=== PATIENT | male | born 1945 | race Caucasian/White ===

== ENCOUNTER 2017-07-21 17:39 | Inpatient (IN) ==
[2017-07-21] MEDS ORDERED: ALUM/MAG/SIMETH/LIDO VISC 1:1 30 ML BOTTLE PO STA (19:34)
[2017-07-21] MEDS ORDERED: PANTOPRAZOLE 40 MG VIAL IV STA (19:34)
[2017-07-21] MEDS ORDERED: ONDANSETRON 4 MG/2 ML VIAL IV STA (19:34)
[2017-07-21] MEDS ORDERED: SODIUM CHLORIDE 0.9% 1,000 ML IV STA (19:34)
[2017-07-21 19:49] LABS: Basophils # 0.1 10*3/uL (0.0-0.2); Basophils % 0.5 % (0.0-0.8); Eosinophils # 0.1 10*3/uL (0.0-0.87); Eosinophils % 0.7 % (0.00-10.9); Hematocrit 36.1 VOL% (42.0-52.0); Hemoglobin 12.5 GM/DL (14.0-18.0); Immature Granulocytes % 0.5 %; Immature Granulocytes Absolute 0.05 #; Lymphocytes # 2.4 10*3/uL (1.4-4.0); Lymphocytes % 22.8 % (21.2-54.2); Mean Corpuscular HGB Conc 34.6 GM/DL (32-36); Mean Corpuscular Hemoglobin 33 PG (27-34); Mean Corpuscular Volume 94.3 FL (87-102); Mean Platelet Volume 9.2 FL (9.6-12.0); Monocytes # 0.8 10*3/uL (0.11-0.8); Monocytes % 7.7 % (1.7-12.7); Neutrophils # 7.3 10*3/uL (1.4-7.4); Neutrophils % 67.8 % (38.7-73.9); Platelet Count 386 T/CUMM (130-400); Red Blood Count 3.83 MC/CUMM (3.8-5.5); Red Cell Distribution Width 13.5 % (9.3-17.3); White Blood Count 10.7 T/CUMM (4-12)
[2017-07-21] MEDS ORDERED: ONDANSETRON 4 MG/2 ML VIAL ONE (20:00)
[2017-07-21] MEDS ORDERED: PANTOPRAZOLE 40 MG VIAL IV ONE (20:00)
[2017-07-21] MEDS ORDERED: ALUM/MAG/SIMETH/LIDO VISC 1:1 30 ML BOTTLE PO ONE (20:01)
[2017-07-21 20:13] LABS: Lactic Acid 1.2 MMOL/L (0.4-2.0)
[2017-07-21 20:15] LABS: Alanine Aminotransferase 13 U/L (16-61); Albumin 2.2 G/DL (3.4-5.0); Alkaline Phosphatase 90 U/L (45-117); Amylase 52 U/L (25-115); Aspartate Amino Transferase 13 U/L (0-37); Blood Urea Nitrogen 17 MG/DL (7-18); Calcium 7.9 MG/DL (8.5-10.1); Glucose 90 MG/DL (74-106); Osmolality,Calculated 267.4 MOS/KG (273-304); Potassium 2.9 MMOL/L (3.5-5.1); Sodium 133 MMOL/L (136-145); Total Protein 5.8 G/DL (6.4-8.3); Troponin I Only < 0.015 NG/ML (0.00-0.045)
--- NOTE | 2017-07-21 20:21 | XRay Report ---
XR abdomen 2V Indication: Abdominal pain. Comparison: Abdominal series 07/15/2017. Technique: Flat and erect images of the abdomen were performed. Findings: The lung bases are clear. No organomegaly is present. Imaged bowel gas pattern is unremarkable. Bones and soft tissues unremarkable. Impression: 1. No active process is suggested within the abdomen or pelvis. 07/21/2017 8:19 PM PROCEDURE INTERPRETED AT [facility] DEPARTMENT OF RADIOLOGY Final Report Signed by: Dr. Cristi Lazo
--- NOTE | 2017-07-21 20:21 | XRay Report ---
XR chest 1V portable Indication: Abdominal pain. Comparison: Chest x-ray 07/15/2017. Technique: Portable AP chest was performed. Findings: Pulmonary nodule/mass right mid lung has probably changed little in size since comparison study. Emphysematous changes are suggested. Hilar structures are stable. Heart size is normal. Bones and soft tissues appear stable. Impression: 1. Little interval change in the chest since comparison. Right upper lobe pulmonary nodule/mass is again demonstrated. 2. Moderate to severe emphysematous changes are present. 07/21/2017 8:17 PM PROCEDURE INTERPRETED AT [facility] DEPARTMENT OF RADIOLOGY Final Report Signed by: Dr. Cristi Lazo
[2017-07-21] MEDS ORDERED: POTASSIUM CHLORIDE 20 MEQ TABLET PO STA (20:36)
--- NOTE | 2017-07-21 20:38 | Emergency Department Note ---
Mariaa Batista Rolonda, am scribing for, and in the presence of, Uri Lira MD 19:21. Pankaj Batista Charles R, MD, personally performed the services described in this documentation, ascribed by Adelfo Leroy in my presence, and it is both accurate and complete . Arrival - Arrival Chief Complaint: Nausea/Vomiting/Diarrhea Stated Complaint: can't eat...diarrhea ED Nursing Triage Note: c/o weakness. pt has diarrhea for 4 weeks. pt was told by gi md to come to er. pt got up this am ans was unable to void until about 1700 this afternoon Mode of Arrival: Ambulatory Limitations: No Limitations Source: Patient, Old Records Reviewed, RN Notes Reviewed Time Seen by Provider: 07/21/17 19:07 - History of Present Illness HPI Narrative: Pt is a 71 y/o male who presents to the ED with c/o N/V/D with an onset of weeks. Pt has a PMHx of colon and lung CA. He states that the sxs started off as stomach cramps when he developed loss of appetite. Pt states that he has not urinated since 1200 last night. He states that he had constipation first and then developed watery, "bright red blood" diarrhea. He confirms associated sxs of weakness but denies CP and SOB. No other complaint/pain in ED. Onset (ago): week(s) Consistency: constant Severity: moderate, severe Severity scale (1-10): 6 Allergies/Adverse Reactions: Allergies Allergy/AdvReac Type Severity Reaction Status Date / Time hydrocodone [From Lortab] AdvReac Intermediate Hallucinati Verified 07/15/17 12: 30 ng Home Medications: Home Medications Medication Instructions Recorded Confirmed Type Aspirin [Ecotrin] 81 mg PO QAM 06/18/16 07/21/17 History Fluticasone/Salmeterol 500-50 1 puff INH BID 06/18/16 07/21/17 History [Advair 500-50] Ipratropium/Albuterol Inhaler 1 puff INH QID 06/18/16 07/21/17 History [Combivent Respimat Inhaler] Multivitamin [Multivitamins] 1 each PO DAILY 06/18/16 07/21/17 History Theophylline ER Tab 200 mg PO BID W/MEALS 06/18/16 07/21/17 History Albuterol Inhaler [Proventil 2 puff INH Q4H PRN 07/15/17 07/21/17 History Inhaler] Cyanocobalamin (Vitamin B-12) 5,000 mcg SL DAILY 07/15/17 07/21/17 History [Vitamin B-12] Omeprazole [Prilosec] 20 mg PO DAILY 07/15/17 07/21/17 History Potassium Chloride Cap/Tab [K Dur] 20 meq PO BID #14 tablet 07/15/17 07/21/17 Rx Review of System - Review of System Constitutional: Present: weakness, other (appepitite loss) Eyes: Absent: discharge Head/Ears/Nose/Throat: Absent: earache Respiratory: Absent: cough Cardiovascular: Absent: chest pain Gastrointestinal: Present: nausea, vomiting, diarrhea (watery; "bright red blood "), constipation. Absent: abdominal pain (stomach cramps) Genitourinary male: Absent: dysuria Musculoskeletal: Absent: arm pain, back pain Skin: Absent: rash Neurological: Absent: headache Psychiatric: Absent: anxiety Endocrine: Absent: cold intolerance Hematological/Lymphatic: Absent: easy bleeding Allergic/Immunologic: Absent: facial swelling Medical,Surgical,& Family Hx - Medical History Neurology: History of: Migraine No history of: Seizures Respiratory: History of: Asthma, COPD, Respiratory Problems (SHORTNESS OF BREATH , 08/2016 DR GARCIA, SPOT ON LUNG) Gastrointestinal: History of: GERD, Gastrointestinal Cancer (11/2006) Musculoskeletal: History of: Back/Neck Problems (FX BACK 2007), Musculoskeletal Problems (BILATERAL OA KNEES) Other: History of: Cancer (COLON CA/LUNG CA) - Surgical History Abdominal Surgeries: Surgical HX of: Abdominal Surgery (COLON RESECTION 11/2006) , Colonoscopy Orthopedic Surgeries: Surgical HX of;: Implanted Devices (SCREWS IN RIGHT THUMB) - Family History Family History: Reports;: Family Cancer (5 UNCLES), Family Stroke (MOTHER) - Social History Smoking Status: Never smoker Frequency of Alcohol Use: None Type of Drug Use: None Exam Vital Signs: Vital Signs Temperature 98.7 F 07/21/17 17:51 Pulse Rate 74 07/21/17 21:49 Respiratory Rate 18 07/21/17 21:49 Blood Pressure 104/59 07/21/17 21:49 O2 Sat by Pulse Oximetry 100 07/21/17 21:49 - General General appearance: alert, in no apparent distress, other (global atrophy in all muscles) - Head Head exam: Present: atraumatic, normocephalic - Eye Eye exam: Present: PERRL, EOMI. Absent: normal appearance (sunken orbits) - ENT ENT exam: Present: mucous membranes dry. Absent: mucous membranes moist - Neck Neck exam: Present: full ROM. Absent: tenderness - Chest Chest inspection: Present: symmetric chest wall rise. Absent: tenderness - Respiratory Respiratory exam: Present: rhonchi (bilateral), wheezes (expiratory) - Cardiovascular Cardiovascular exam: Present: regular rate, normal rhythm, normal heart sounds. Absent: bradycardia - Abdominal Exam Abdominal exam: Present: soft, normal bowel sounds, other (scaphoid abdomen; sunken) - Rectal Exam Rectal exam: Present: heme (+) stool - Extremities Exam Extremities exam: Present: full ROM. Absent: normal inspection (clubbing in hands), tenderness - Back Exam Back exam: Present: full ROM. Absent: tenderness - Neurological Exam Neurological exam: Present: alert, oriented X3, CN II-XII intact - Psychiatric Psychiatric exam: Present: normal affect, normal mood - Skin Skin exam: Present: warm, dry, intact, normal color. Absent: rash Course - Consultations Consultation #1: Dr. Rich will admit for Dr. Joyner Time: 23:10 Results - Labs CBC & BMP: 07/21/17 19:12 07/21/17 19:12 Lab Results: I have reviewed the patients labs Labs: Laboratory Tests 07/21/17 19:12 WBC 10.7 RBC 3.83 Hgb 12.5 L Hct 36.1 L Plt Count 386 MPV 9.2 L Laboratory Tests 07/21/17 19:12 Sodium 133 L Potassium 2.9 L Chloride 93 L Carbon Dioxide 33 H BUN 17 GFR Calculation 82 Glucose 90 Calculated Osmolality 267.4 L Calcium 7.9 L AST 13 ALT 13 L Total Creatine Kinase 32 L Total Protein 5.8 L Albumin 2.2 L Globulin 3.6 H Albumin/Globulin Ratio 0.6 L Laboratory Tests 07/21/17 19:12 Blood Type O POSITIVE Antibody Screen Negative Laboratory Tests 07/21/17 21:48 Urine pH 6.0 Ur Specific [place] 1.020 Urine Protein 30 Urine Glucose (UA) Negative Urine Ketones Negative Urine Blood Negative Urine Nitrate Negative Urine Bilirubin Large H Urine Urobilinogen < 2.0 H Urine Leukocytes Negative Urine RBC 1 Urine WBC 2 Urine Mucus Occasional Ur Culture Indicated? Not indicated - Diagnostic Findings Procedure: Abdominal x-ray: report reviewed by me (1. No active process is suggested within the abdomen or pelvis.), Chest x-ray: report reviewed by me ( 1. Little interval change in the chest since comparison. Right upper lobe pulmonary nodule/mass is again demonstrated. 2. Moderate to severe emphysematous changes are present.) Disposition Clinical Impression: Lung cancer, History of colon cancer, Obstipation, Lower GI bleed Case discussed with: patient Disposition: Still a Patient Condition: Stable Time of Disposition: 23:25
[2017-07-21] MEDS ORDERED: POTASSIUM CHLORIDE 20 MEQ TABLET PO ONE (20:45)
[2017-07-21 22:07] LABS: Apearance,Urine Clear (Clear); Blood, Urine NEGATIVE (Negative); Glucose,Urine (UA) Negative (Negative); Ketones,Urine Negative (Negative); Mucus,Urine Occasional /LPF (Occasional); Nitrite,Urine Negative (Negative); Protein,Urine 30 MG/DL; RBC,Urine 1 /HPF (0-4); Urine Color Yellow (Yellow); WBC,Urine 2 /HPF (0-6)
[2017-07-21 22:12] LABS: Bilirubin,Urine Large mg/dL (Negative); Urine Urobilinogen < 2.0 EU/DL (0.2-1.0)
[2017-07-22] MEDS ORDERED: LACTULOSE 20 GM/30 ML UDCUP PO PRN (00:04)
[2017-07-22] MEDS ORDERED: BENZTROPINE 2 MG/2 ML AMP IV PRN (00:04)
[2017-07-22] MEDS ORDERED: diphenhydrAMINE CAP 25 MG CAPSULE PO PRN (00:04)
[2017-07-22] MEDS ORDERED: chlorproMAZINE INJ 25 MG in SODIUM CHLORIDE 0.9% 100 ML IV PRN (00:04)
[2017-07-22] MEDS ORDERED: MYLANTA/LIDO VISC 2:1 300 ML BOTTLE SWISH/SPIT PRN (00:04)
[2017-07-22] MEDS ORDERED: guaiFENesin 200 MG/10 ML UDCUP PO PRN (00:04)
[2017-07-22] MEDS ORDERED: LOPERAMIDE 2 MG CAPSULE PO PRN ×2 (00:04)
[2017-07-22] MEDS ORDERED: MYLANTA/LIDO VISC 2:1 300 ML BOTTLE SWISH/SWAL PRN (00:04)
[2017-07-22] MEDS ORDERED: chlorproMAZINE INJ 50 MG in SODIUM CHLORIDE 0.9% 100 ML IV PRN (00:04)
[2017-07-22] MEDS ORDERED: ONDANSETRON 4 MG/2 ML VIAL IV PRN (00:04)
[2017-07-22] MEDS ORDERED: ACETAMINOPHEN 325 MG TABLET PO PRN (00:04)
[2017-07-22] MEDS ORDERED: PROMETHAZINE INJ 25 MG in SODIUM CHLORIDE 0.9% 50 ML IV PRN (00:04)
[2017-07-22] MEDS ORDERED: TEMAZEPAM 7.5 MG CAPSULE PO PRN (00:04)
[2017-07-22] MEDS ORDERED: ALUMINUM/MAGNES/SIMETH MAX STR 30 ML UDCUP PO PRN (00:04)
[2017-07-22] MEDS ORDERED: SODIUM CHLORIDE 0.9% 1,000 ML IV SCH (00:04)
[2017-07-22] MEDS ORDERED: ALPRAZolam 0.25 MG TABLET PO PRN (00:04)
[2017-07-22] MEDS ORDERED: MAGNESIUM HYDROXIDE SUSP 30 ML UDCUP PO PRN (00:04)
[2017-07-22] MEDS ORDERED: chlorproMAZINE 25 MG TABLET PO PRN (00:04)
[2017-07-22] MEDS ORDERED: ALBUTEROL 2.5 MG/3 ML NEB RESP TX PRN (01:00)
[2017-07-22 01:45] LABS: Basophils % 0.4 % (0.0-0.8); Eosinophils # 0.1 10*3/uL (0.0-0.87); Eosinophils % 0.6 % (0.00-10.9); Hemoglobin 11.2 GM/DL (14.0-18.0); Immature Granulocytes % 0.8 %; Immature Granulocytes Absolute 0.08 #; Lymphocytes # 2.4 10*3/uL (1.4-4.0); Lymphocytes % 24.4 % (21.2-54.2); Mean Corpuscular HGB Conc 33.9 GM/DL (32-36); Mean Corpuscular Hemoglobin 32 PG (27-34); Mean Corpuscular Volume 95.4 FL (87-102); Monocytes # 0.8 10*3/uL (0.11-0.8); Monocytes % 8.4 % (1.7-12.7); Neutrophils # 6.3 10*3/uL (1.4-7.4); Neutrophils % 65.4 % (38.7-73.9); Platelet Count 440 T/CUMM (130-400); Red Blood Count 3.46 MC/CUMM (3.8-5.5); Red Cell Distribution Width 13.5 % (9.3-17.3); White Blood Count 9.6 T/CUMM (4-12)
[2017-07-22 02:02] LABS: Albumin 1.9 G/DL (3.4-5.0); Bilirubin,Total 0.6 MG/DL (0.2-1.0); Calcium 7.4 MG/DL (8.5-10.1); Magnesium 1.9 MG/DL (1.8-2.4); Osmolality,Calculated 270.1 MOS/KG (273-304); Potassium 3.3 MMOL/L (3.5-5.1); Uric Acid 6.5 MG/DL (3.5-7.2)
[2017-07-22] MEDS: ALBUTEROL/IPRATROPIUM 3 ML NEB RESP TX SCH ×4 (07:18→18:52)
--- NOTE | 2017-07-22 07:41 | Oncology History&Physical ---
History of Present Illness Chief complaint: Intractable nausea and vomiting and diarrhea History of present illness: Mr. Lopez is a 71 year old male who is currently off chemotherapy. 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 He has been on active chemotherapy in the past using Abraxane, carboplatin and Avastin but his last course was given April 02, 2017 and at that point we stopped chemotherapy at his request. His lung cancer is PDL1 negative. He has had five courses of Abraxane, carboplatin and Avastin with the last one being given April 02, 2017 as stated above. He was responding to chemotherapy but his insurance changed and part of the problem is that he did not want to get and it and he therefore requested that we stop treatment of his lung cancer. He was being treated with Avastin as a single agent when she got on April 09 but he wanted that stopped as well. I had considered trying Alimta, carboplatin and Keytruda but this is approved only for stage IV disease. If he has proven stage IV disease, we can use the above combination we can also consider him for Tecentric or possibly Tagrisso third line. He underwent PET scanning earlier this year but has not had one recently. He has had a CT of the chest earlier this month that was interpreted as follows: History: COPD. Pneumonia. Acute on chronic bronchitis. History of colon cancer Date: 06/24/2016 Study: CT chest with IV contrast Comparison exam: Most recent available comparison chest CT is from August 29, [address] sections were obtained through the lungs following the IV administration of 80 mL of Omnipaque 350 without immediate complication. Total DLP measures 140.7 mGy*cm. There is no thoracic aortic aneurysm or dissection. There is no mediastinal lymphadenopathy by short axis diameter criteria. There is no pleural or pericardial effusion. There is mild coronary artery calcification present. There are moderate emphysematous changes in the lungs bilaterally, more so in the upper lung zones. Centrilobular emphysema is favored. There is some parenchymal consolidation in the right upper lobe compatible with pneumonia. This involves the posterior and anterior segments inferiorly. There is also a small amount of hazy infiltrate in the right middle lobe near the perihilar area. There is no well-circumscribed soft tissue mass. There is mild diffuse fatty infiltration of the largely visualized liver. Impression: Right lung pneumonia. Moderate emphysematous changes PROCEDURE INTERPRETED AT [facility] DEPARTMENT OF RADIOLOGY Final Report Signed by: Dr. Barbie Frey In addition, the patient has a remote history of adenocarcinoma of the right colon that was diagnosed November 27, 2006. It was stage IIIb with a T3, N1, M0 tumor. He was treated with adjuvant chemotherapy using leucovorin and 5-FU weekly for 4 courses. He completed this treatment in June 2007. Past medical history: Allergies: Hydrocodone including Lorcet, Lortab's. Past medical history is positive for emphysema, asthma and colon polyps. Family history is positive for an abdominal aortic aneurysm in his brother, diabetes in his daughter, lung cancer in his father and coronary artery disease and stroke in his mother Social history: He was a heavy smoker for years. He does not use alcohol. ROS Gen.: Positive for increased appetite until very recently. He had gained weight at one point but his appetite has dropped off now. He also has generalized weakness and lack of energy. Eyes: No history of chronic disease, infections or visual loss. ENT: No history of chronic infections, epistaxis, chronic sore throat Lungs: History of asthma and emphysema with dyspnea with mild exertion. No history of hemoptysis, chronic pleurisy or long-term or chronic infections Cardiovascular: No history of angina, coronary artery disease, congestive heart failure, cardiovascular surgery or DVT/VTE GI: He has developed both nausea and vomiting and diarrhea that began about a month ago but prior to that time there was no history of upper or lower GI bleeding, melena, dysphagia, odynophagia, liver disease, gallbladder disease or pancreatic disease. : No history of kidney stones, chronic kidney infections or hematuria. Musculoskeletal: No history of chronic bone or joint pain or focal muscle atrophy or bone or joint deformity. Neurologic: No history of seizures, convulsions or paralysis. Psychiatric: No history of chronic psychiatric illness or psychiatric medications. Lymphatic: No history of significant or long-term lymphadenopathy Hematologic: Positive for easy bruising but otherwise no history of anemia, bleeding disorders or blood dyscrasias or long-term elevation or depression white cell count or petechiae. Skin: No history of chronic skin infections or rashes or significant skin lesions. Physical examination: General: The patient is chronically ill-appearing. He also appears acutely ill. Eyes: Normal lids and conjunctivae. ENT: His oral mucosa and pharynx are normal. His hearing is normal. His trachea is midline and he has no neck masses. Lungs: Breath sounds are coarse throughout with decreased breath sounds throughout and with prolonged expiratory phase of respiration. I see no chest wall masses and there is no tenderness. Cardiovascular: His heart rhythm is regular without murmur, gallop or rub. There is no jugular venous distention, clubbing, cyanosis or edema. Abdomen: Presently bowel sounds are normal. In addition, there is no tenderness and there are no abdominal masses, organomegaly or ascites and no splenomegaly. Musculoskeletal: The patient is thin to the point of being cachectic. There is no focal muscle atrophy or bone or joint deformity. Neurologic: Cranial nerves II through XII are intact. The no focal neurologic deficits. Nodes: I palpate no submandibular, cervical, supraclavicular or axillary adenopathy. Skin: I see no significant rashes or lesions. Impression: Intractable nausea and vomiting and diarrhea of indefinite etiology: Stage IIIB adenocarcinoma of the lung responding to chemotherapy but currently off chemotherapy: Moderately severe COPD: History of adenocarcinoma of the colon: Emaciation, cachexia and malnutrition: Consulting Dr. Kruse to evaluate the patient with me for this intractable nausea and vomiting. I do not think this is recurrence of the patient's colon cancer. Once we get his nausea and vomiting under control, I would like to obtain a CT of the abdomen and pelvis and possibly a repeat CT of the patient's chest to re-assess his lung cancer and his colon cancer and his overall condition. This is a somewhat unfortunate situation that this patient feels ethically found to not take further chemotherapy if he cannot afford it. However, he has also done surprisingly well with advanced lung cancer that so far has been proven to be stage IIIb and also he has had no prior evidence of recurrence of his colon cancer. He has significant COPD as well. Home Medications Medication Instructions Recorded Confirmed Type Aspirin [Ecotrin] 81 mg PO QAM 06/18/16 07/21/17 History Fluticasone/Salmeterol 500-50 1 puff INH BID 06/18/16 07/21/17 History [Advair 500-50] Ipratropium/Albuterol Inhaler 1 puff INH QID 06/18/16 07/21/17 History [Combivent Respimat Inhaler] Multivitamin [Multivitamins] 1 each PO DAILY 06/18/16 07/21/17 History Theophylline ER Tab 200 mg PO BID W/MEALS 06/18/16 07/21/17 History Albuterol Inhaler [Proventil 2 puff INH Q4H PRN 07/15/17 07/21/17 History Inhaler] Cyanocobalamin (Vitamin B-12) 5,000 mcg SL DAILY 07/15/17 07/21/17 History [Vitamin B-12] Potassium Chloride Cap/Tab [K Dur] 20 meq PO BID #14 tablet 07/15/17 07/21/17 Rx Allergies Allergy/AdvReac Type Severity Reaction Status Date / Time hydrocodone [From Lortab] AdvReac Intermediate Hallucinati Verified 07/15/17 12: 30 ng Medical,Surgical,& Family Hx - Medical History Neurology: History of: Migraine No history of: Seizures Respiratory: History of: Asthma, COPD, Respiratory Problems (SHORTNESS OF BREATH , 08/2016 DR GARCIA, SPOT ON LUNG) Gastrointestinal: History of: GERD, Gastrointestinal Cancer (11/2006) Musculoskeletal: History of: Back/Neck Problems (FX BACK 2007), Musculoskeletal Problems (BILATERAL OA KNEES) Other: History of: Cancer (COLON CA/LUNG CA) - Surgical History Abdominal Surgeries: Surgical HX of: Abdominal Surgery (COLON RESECTION 11/2006) , Colonoscopy Orthopedic Surgeries: Surgical HX of;: Implanted Devices (SCREWS IN RIGHT THUMB) - Family History Family History: Reports;: Family Cancer (5 UNCLES), Family Stroke (MOTHER) Denies;: Family Anesthesia Reaction, Family Diabetes, Family Heart Disease, Family Hematology, Family Hypertension, Family Psychiatric Problems - Social History Smoking Status: Former smoker Frequency of Alcohol Use: None Type of Drug Use: None Exam - Constitutional Vitals: Period Temp Pulse Resp BP Sys/Rayo Pulse Ox Last 24 Hr 97.1 F-98.7 F 74-91 18-20 91-143/57-64 94-100 Results - Labs CBC & BMP: 07/22/17 01:07 07/22/17 01:08 Quality Measures - VTE Contraindication to Pharmacological VTE Prophylaxis: High Risk of Bleeding
[2017-07-22] MEDS: POTASSIUM CHLORIDE 20 MEQ TABLET PO SCH ×2 (08:41→20:47)
[2017-07-22] MEDS: MULTIVITAMIN (CENTRUM) TABLET PO SCH (08:41)
[2017-07-22] MEDS: THEOPHYLLINE ER (24 HR) 400 MG CAPSULE PO SCH (08:41)
[2017-07-22] MEDS: ASPIRIN EC 81 MG TABLET PO SCH (08:41)
[2017-07-22] MEDS: FLUTICASONE/SALMETEROL 500-50 DISKUS 14 DOSE INH SCH ×2 (08:46→20:52)
[2017-07-22] MEDS ORDERED: PANTOPRAZOLE 40 MG VIAL IV SCH (09:00)
[2017-07-22] MEDS ORDERED: NON-FORMULARY MEDICATION (Omeprazole [Prilosec] 20 MG) PO SCH (09:00)
[2017-07-22] MEDS: DEXT 5% NACL 0.45% KCL 20 MEQ 20 MEQ/1,000 ML BAG IV SCH ×2 (11:11→23:32)
[2017-07-22] MEDS: VIT B12 SL SCH (11:12)
--- NOTE | 2017-07-22 13:22 | Gastrointestinal Consult Note ---
Assessment and Plan (1) Lower GI bleed Status: Acute Assessment and plan: I suspect this may be related to an underlying colitis versus hemorrhoidal bleeding--patient states that he is going to the bathroom some 10-12 times per day although this has not been documented by the nursing staff. He has been told to keep them appraised of his number of stools per day and we will continue to watch his hematocrit at least on a daily basis as he appears to be only having some slight bright red blood/spotting occurring. Will order another CBC so we can also follow his white blood cell count on a daily basis. Current Visit: Yes (2) Nausea vomiting and diarrhea Status: Acute Assessment and plan: Patient is having nausea, vomiting, and diarrhea. This likely is related to some systemic infection possibly coming from his colon, if not related to previous chemotherapy or underlying gastritis. I will make sure that he is continuing to get pantoprazole 40 mg twice daily through the IV route. This should calm down his stomach, and we will perform colonoscopy tomorrow to look and see how severe inflammation is in his colon. We should also be able see if there is a great deal of inflammation in the small bowel consistent with small bowel overgrowth. Depending on findings, I may start the Xifaxan versus another antibiotic such as Cipro/Flagyl in combination versus Augmentin potentially. The fact that Xifaxan is nonabsorbable makes it uniquely suited for treating small bowel overgrowth. and colonic infections. Current Visit: Yes (3) Generalized abdominal pain Status: Acute Assessment and plan: I believe this is related to the underlying colitis and/or small bowel overgrowth may be present. We will likely perform biopsies in the colon itself looking to rule out microscopic and collagenous colitis and see if there is any evidence of the previously noted acute self-limited colitis. We need to make sure the patient does not have ischemic colitis. I suspect there will be no further evidence of colon cancer as his last colonoscopy was done in 2016. Current Visit: Yes (4) History of colon cancer Status: Acute Assessment and plan: We will look for further evidence of polyps but the patient has his left hemicolectomy done done 2007 has not had a recurrence of the colon cancer since that time. Most recent colonoscopy did not demonstrate any polyps on 05/14/16. Repeat study tomorrow mostly to look for evidence of ischemic colitis versus infectious colitis. Current Visit: Yes History of Present Illness Chief complaint: Nausea/vomiting/diarrhea 10-12 times per day. History of present illness: Mr. Lopez is a 71 year old male who has a history of colon cancer diagnosed approximately 2006, 10 years ago at which point the patient had a right hemicolectomy. The patient was first seen in 2016 when he was having epigastric pain that was thought secondary to NSAID's from etodolac use in conjunction with the patient's arthritis. He was told to substitute ibuprofen for this and start taking Protonix 40 mg twice daily. The patient was subsequently set up for a colonoscopy which was done on 05/14/16 which demonstrated a self-limited colitis involving mostly the rectum and sigmoid and biopsies were taken all the way up to the transverse or transition to the small bowel was noted given the patient's right hemicolectomy. He was subsequently seen in the office on 07/08/17 after having developed approximately 10-12 bowel movements per day with mucus and blood in his stools. It was thought that with his recent weight loss along with diarrhea and change in bowel habits that with his treatment for lung cancer with multiple rounds of chemotherapy (see Dr. Joyner's H&P for full details) he may have developed an infectious colitis versus less likely ischemic colitis. 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 We gave him some samples of Xifaxan and also a prescription for Xifaxan 550 mg 3 times daily for total of 14 days. Unfortunately the patient was not able to afford this and we were given a list of medications that the patient could be covered with including Bentyl and Lomotil, neither of which would address the underlying problem, unfortunately. It was elected to try him on some Bentyl. And hope that the patient could defeat the potential infection on his own. Stool studies did not show a specific infection such as C. difficile but did show fecal leukocytes consistent with the previously noted biopsies demonstrating a self-limited colitis. Patient states that he is continuing to have problems with abdominal cramping throughout his abdomen, ranging in intensity from 6 out of 10-10 out of 10. He is continuing to have 10-12 bowel movements per day at this point and we will proceed with repeat stool cultures, and arrange for colonoscopy tomorrow given the patient's rectal bleeding. Again, should this be small bowel overgrowth, the treatment of choice would be Xifaxan, but we can consider other antibiotics if necessary. Stool cultures are pending. The patient is not experiencing any fevers or chills, no elevated temperature, and his white blood cell count on admission was 10.7. He has not yet been started on antibiotics. Home Medications Medication Instructions Recorded Confirmed Type Aspirin [Ecotrin] 81 mg PO QAM 06/18/16 07/21/17 History Fluticasone/Salmeterol 500-50 1 puff INH BID 06/18/16 07/21/17 History [Advair 500-50] Ipratropium/Albuterol Inhaler 1 puff INH QID 06/18/16 07/21/17 History [Combivent Respimat Inhaler] Multivitamin [Multivitamins] 1 each PO DAILY 06/18/16 07/21/17 History Theophylline ER Tab 200 mg PO BID W/MEALS 06/18/16 07/21/17 History Albuterol Inhaler [Proventil 2 puff INH Q4H PRN 07/15/17 07/21/17 History Inhaler] Cyanocobalamin (Vitamin B-12) 5,000 mcg SL DAILY 07/15/17 07/21/17 History [Vitamin B-12] Potassium Chloride Cap/Tab [K Dur] 20 meq PO BID #14 tablet 07/15/17 07/21/17 Rx Allergies Allergy/AdvReac Type Severity Reaction Status Date / Time hydrocodone [From Lortab] AdvReac Intermediate Hallucinati Verified 07/15/17 12: 30 ng Medical,Surgical,& Family Hx - Medical History Neurology: History of: Migraine No history of: Seizures Respiratory: History of: Asthma, COPD, Respiratory Problems (SHORTNESS OF BREATH , 08/2016 DR GARCIA, SPOT ON LUNG) Gastrointestinal: History of: GERD, Gastrointestinal Cancer (11/2006) Musculoskeletal: History of: Back/Neck Problems (FX BACK 2007), Musculoskeletal Problems (BILATERAL OA KNEES) Other: History of: Cancer (COLON CA/LUNG CA) - Surgical History Abdominal Surgeries: Surgical HX of: Abdominal Surgery (COLON RESECTION 11/2006) , Colonoscopy Orthopedic Surgeries: Surgical HX of;: Implanted Devices (SCREWS IN RIGHT THUMB) - Family History Family History: Reports;: Family Cancer (5 UNCLES), Family Stroke (MOTHER) Denies;: Family Anesthesia Reaction, Family Diabetes, Family Heart Disease, Family Hematology, Family Hypertension, Family Psychiatric Problems - Social History Smoking Status: Former smoker Frequency of Alcohol Use: None Type of Drug Use: None Review of systems: Constitutional: Denies fever, chills, but positive for nausea, and vomiting Eyes: Denies dry eyes, and scleral icterus HENT: Occasion headaches Cardiovascular: Denies acute chest pain and claudication Respiratory: Denies shortness of breath, wheezing, and difficulty breathing, denies cough Gastrointestinal: As noted in the HPI Genitourinary: Denies dysuria and hematuria Neurologic: Denies vision loss, and loss of sensation Musculoskeletal: Patient does have minimal joint swelling, joint stiffness, and muscular weakness Psychiatric: Denies depression and christelle symptoms Heme-Lymph: Denies easy bruising, lymph node enlargement or tenderness, night sweats, excessive bleeding Allergies-immunologic: Denies pruritus and rhinorrhea Exam - Constitutional Vitals: Period Temp Pulse Resp BP Sys/Rayo Pulse Ox Last 24 Hr 97.1 F-98.7 F 66-91 18-20 91-143/51-64 89-100 General appearance: normal weight Exam: Constitutional: Well-developed, well-nourished, alert, and in no acute distress Head and face: Head: Normocephalic atraumatic Eyes: Conjunctiva without injection, no gross scleral icterus, pupils equal and round bilaterally Ears: Intact to conversation in both ears Nose: External appearance is normal, nares patent Mouth: Oral mucous membranes moist without erythema dentition noted to be without erosion, but multiple teeth are missing. Neck: Normal appearance, no masses or tenderness, trachea midline Thyroid: Gland midline and appropriate size for age Respiratory: Normal respiratory effort, clear to auscultation without wheezes, rhonchi or rales Cardiovascular: Regular rate and rhythm, normal S1, S2, the exam is without rubs, murmurs or gallops. Gastrointestinal: Moderately tender to palpation in all quadrants, normal active bowel sounds, tone normal without rigidity or guarding, no masses present , no hepatomegaly, no spleen tip felt. Well-healed midline scarring noted from the patient's previous colectomy, no rectal exam obtained--we will perform this again during colonoscopy tomorrow. Lymphatic: Neck without adenopathy, axilla without lymphadenopathy present Musculoskeletal: Right and left lower extremities without evidence of edema Skin and subcutaneous tissue: No rashes or ulcerations noted, normal skin turgor, digits and nails without clubbing/cyanosis/deformities. Neurologic: The patient is grossly oriented to person place and time, cranial nerves show tongue movements are normal with normal tongue extrusion midline, light touch sensation is intact. Psychiatric: No hallucinations or delusions are present, does not appear depressed Results - Labs CBC & BMP: 07/22/17 01:07 07/22/17 01:08 Quality Measures - VTE Contraindication to Pharmacological VTE Prophylaxis: High Risk of Bleeding
--- NOTE | 2017-07-22 13:37 | XRay Report ---
XR abdomen 2V Indication: Abdominal pain Comparison: Abdominal series 07/21/2017. Technique: Flat and erect images of the abdomen were performed. Findings: Partially visualized venous catheter terminates in the superior vena cava. There is a focal area of architectural distortion mid to upper right lung that may impart reflect scarring. Emphysematous changes are suggested. No organomegaly is demonstrated. Bowel gas pattern demonstrates no specific abnormality. No free air is present. Bones and soft tissues demonstrate no acute findings. Impression: 1. No active process is suggested within the abdomen or pelvis. 07/22/2017 1:34 PM PROCEDURE INTERPRETED AT [facility] DEPARTMENT OF RADIOLOGY Final Report Signed by: Dr. Cristi Lazo
[2017-07-22 15:07] LABS: Apearance,Urine CLEAR (Clear); Bilirubin,Urine Negative (Negative); Blood, Urine NEGATIVE (Negative); Glucose,Urine (UA) Negative (Negative); Ketones,Urine 25 mg/dL (Negative); Mucus,Urine Many /LPF (Occasional); Nitrite,Urine Negative (Negative); Protein,Urine Negative; RBC,Urine 1 /HPF (0-4); Urine Color Yellow (Yellow); Urine Specific Gravity 1.015 (1.001-1.035); Urine Urobilinogen 0.2 EU/DL (0.2-1.0); WBC,Urine 19 /HPF (0-6)
[2017-07-22] MEDS ORDERED: POLYETHYLENE GLYCOL POWDER 255 GM BOTTLE PO ONE (18:00)
[2017-07-22] MEDS: PANTOPRAZOLE 40 MG VIAL IV SCH (20:47)
[2017-07-22] MEDS ORDERED: MAGNESIUM CITRATE 300 ML BOTTLE PO ONE (21:00)
[2017-07-23 06:11] LABS: Basophils % 0.5 % (0.0-0.8); Eosinophils # 0.1 10*3/uL (0.0-0.87); Eosinophils % 1.9 % (0.00-10.9); Hematocrit 33.7 VOL% (42.0-52.0); Hemoglobin 11.3 GM/DL (14.0-18.0); Immature Granulocytes % 0.5 %; Immature Granulocytes Absolute 0.04 #; Lymphocytes # 2.5 10*3/uL (1.4-4.0); Lymphocytes % 34.1 % (21.2-54.2); Mean Corpuscular HGB Conc 33.5 GM/DL (32-36); Mean Corpuscular Hemoglobin 32 PG (27-34); Mean Corpuscular Volume 96.3 FL (87-102); Mean Platelet Volume 8.6 FL (9.6-12.0); Monocytes # 0.6 10*3/uL (0.11-0.8); Monocytes % 8.5 % (1.7-12.7); Neutrophils % 54.5 % (38.7-73.9); Platelet Count 429 T/CUMM (130-400); Red Cell Distribution Width 13.3 % (9.3-17.3); White Blood Count 7.4 T/CUMM (4-12)
[2017-07-23 06:41] LABS: Band Neutrophils 7 % (0-10); Eosinophils 5 % (0-10); Giant Platelets Few; Hypochromasia 1+; Lymphocytes 28 % (20-55); Ovalocytes Slight; Platelet Estimate Adequate; Segmented Neutrophils 55 % (50-85); Total Cells Counted 100
[2017-07-23 06:52] LABS: Albumin 1.9 G/DL (3.4-5.0); Calcium 7.7 MG/DL (8.5-10.1)
[2017-07-23] MEDS: ALBUTEROL/IPRATROPIUM 3 ML NEB RESP TX SCH ×4 (07:10→19:33)
--- NOTE | 2017-07-23 09:14 | Operative Note ---
Date of procedure: 07/23/17 Pre-op diagnosis: Diarrhea 10-12 times per day in a patient with right hemicolectomy Post-op diagnosis: other (Severe colitis with multiple erosions and ulcerations as well as leadpipe thickening all VERY suspicious for ulcerative colitis. Terminal ileum appeared free of the disease. Biopsies are pending to confirm the diagnosis. This may also be severe bacterial colitis mixed with the patient 's previous chemotherapy.) Procedure: PROCEDURE: Colonoscopy with cold biopsy for pathology REFERRING PHYSICIAN: Dr. Josue Joyner MD INDICATIONS: Diarrhea 10-12 times per day for the last several months in a patient who is being treated with chemotherapy for his lung cancer the prior H& P was reviewed and interrim changes are as noted: No change from GI consultation yesterday ENDOSCOPIST: Jayce Felix MD ENDOSCOPE: [employer] 100 System colonoscope COLON PREPARATION: 238 gm of PEG containing laxative and 1.9 liters of gatoraid/sports drink and dulcolax 15 mg q8 hours x 3 ASA CLASS: 4 EXAM: CV: regular rate and rhythm Respiratory: Clear without wheezes Abdominal: active bowel sounds Rectal: Good tone, no fissures or fistulas MEDICATION: Per nursing anesthesia protocol, see their notes PROCEDURE: After discussion of the potential risks and benefits of colonoscopy, the informed consent was obtained, from patient or health care surrogate. The patient was then placed in the left lateral decubitus position where sedation was achieved as noted above. Rectal examination was followed by insertion of the colonoscope. The colonoscope was passed under direct visualization to the cecum. Advancement was facilitated by insertion/withdrawl techniques, abdominal pressure and patient positioning. Once the cecal pole was reached, slow withdrawal was performed with the findings as noted below. The patient tolerated the procedure well and without complication. QUALITY OF PREP: Excellent WITHDRAWL TIME: 10 minutes 33 seconds BIOPSIES: Obtained PHOTOGRAPHS: Obtained FINDINGS: The musoca appeared to have deep ulcerations and heavy thickening/ inflammation with rafael cobblestoning and gross ulcerations all consistent with the appearance of ulcerative colitis. Multiple biopsies were taken through the entire remaining colon up to the distal transverse colon at 85 cm. The terminal ileum had an end and anastomosis at 85 cm which had a normal appearance and biopsies were taken here to look for evidence of Crohn's, but overall the appearance was one of severe ulcerative colitis. IMPRESSION: Severe colitis with multiple erosions and ulcerations as well as leadpipe thickening all VERY suspicious for ulcerative colitis. Terminal ileum appeared free of the disease. Biopsies are pending to confirm the diagnosis. This may also be severe bacterial colitis mixed with the patient's previous chemotherapy. RECOMMENDATIONS: High fiber diet Start Zosyn to decrease bacterial translocation in the colon. Start Asacol 800 mg po QID Solu-Medrol 60 mg 3 times daily Citrucel 1 tablespoon in 12 oz juice BID: 1 bottle: :11 Follow up by phone for biopsy results in 1-2 weeks by phone Jayce Felix MD COPY TO: Dr. Josue Joyner MD Anesthesia: MAC Surgeon / Physician: Jayce Felix Estimated blood loss: minimal Specimens: other (TI, transverse/proximal descending, distal descending/sigmoid , rectum) Condition: stable Disposition: post procedure unit (G.I. Suite) Results - Labs CBC & BMP: 07/23/17 06:00 07/23/17 06:00 Discharge Plan - Discharge Medications No Action Theophylline ER Tab 200 mg PO BID W/MEALS Ipratropium/Albuterol Inhaler [Combivent Respimat Inhaler] 1 puff INH QID Aspirin [Ecotrin] 81 mg PO QAM Fluticasone/Salmeterol 500-50 [Advair 500-50] 1 puff INH BID Multivitamin [Multivitamins] 1 each PO DAILY Albuterol Inhaler [Proventil Inhaler] 2 puff INH Q4H PRN PRN Reason: Shortness Of Breath/Wheezing Cyanocobalamin (Vitamin B-12) [Vitamin B-12] 5,000 mcg SL DAILY Potassium Chloride Cap/Tab [K Dur] 20 meq PO BID #14 tablet - Follow Up or Referral - Forms/Instructions
--- NOTE | 2017-07-23 09:24 | Gastrointestinal Progress Note ---
Assessment and Plan (1) Ulcerative colitis with rectal bleeding Status: Acute Assessment and plan: Biopsies are pending but the patient appears to have some of the worst ulcerative colitis seen in my life. This has been involvement with slight sparing of the rectum but severe deep crater is all the way through to the connection with the small bowel at 85 cm in the distal transverse colon. This may be a bacterial infection with ulcerations also associated with recent chemotherapy as well. Biopsies are pending, given the severity of the appearance am going to treat it like ulcerative colitis. I am starting some Solu-Medrol as well as high-dose a Asacol at 1600 mg TID, will start some Zosyn to help prevent bacterial translocation given the patient's steroid dosing. Will watch CBC to see if this remains in acceptable range. If the colitis cannot be controlled with use of steroids and and Asacol we may have to consider biologic agents such as Humira or complete colectomy. Current Visit: Yes (2) Lower GI bleed Status: Acute Assessment and plan: I suspect this may be related to an underlying colitis versus hemorrhoidal bleeding--patient states that he is going to the bathroom some 10-12 times per day although this has not been documented by the nursing staff. He has been told to keep them appraised of his number of stools per day and we will continue to watch his hematocrit at least on a daily basis as he appears to be only having some slight bright red blood/spotting occurring. Will order another CBC so we can also follow his white blood cell count on a daily basis. 07/23/17--as noted above, severe pancolitis of the remaining colon likely ulcerative colitis. Current Visit: Yes (3) Nausea vomiting and diarrhea Status: Acute Assessment and plan: Patient is having nausea, vomiting, and diarrhea. This likely is related to some systemic infection possibly coming from his colon, if not related to previous chemotherapy or underlying gastritis. I will make sure that he is continuing to get pantoprazole 40 mg twice daily through the IV route. This should calm down his stomach, and we will perform colonoscopy tomorrow to look and see how severe inflammation is in his colon. We should also be able see if there is a great deal of inflammation in the small bowel consistent with small bowel overgrowth. Depending on findings, I may start the Xifaxan versus another antibiotic such as Cipro/Flagyl in combination versus Augmentin potentially. The fact that Xifaxan is nonabsorbable makes it uniquely suited for treating small bowel overgrowth. and colonic infections. 07/23/17--As noted above. Nausea and vomiting likely in association with the above colitis. Current Visit: Yes (4) Generalized abdominal pain Status: Acute Assessment and plan: I believe this is related to the underlying colitis and/or small bowel overgrowth may be present. We will likely perform biopsies in the colon itself looking to rule out microscopic and collagenous colitis and see if there is any evidence of the previously noted acute self-limited colitis. We need to make sure the patient does not have ischemic colitis. I suspect there will be no further evidence of colon cancer as his last colonoscopy was done in 2015. 07/23/17--Severe abdominal pain is likely due to the pancolitis as noted above this is likely ulcerative versus less likely bacterial/infectious colitis not ischemic. Current Visit: Yes (5) History of colon cancer Status: Acute Assessment and plan: We will look for further evidence of polyps but the patient has his left hemicolectomy done done 2007 has not had a recurrence of the colon cancer since that time. Most recent colonoscopy did not demonstrate any polyps on 05/14/16. Repeat study tomorrow mostly to look for evidence of ischemic colitis versus infectious colitis. 07/23/17--No polyps could be seen given the inflammation of the remaining colon. Multiple biopsies were obtained. There will be some post biopsy/colonoscopy bleeding. Current Visit: Yes Gastroenterology - PN: Subj Interval history: Patient had a hellish night with a bowel prep. He does state that he is cleaned this morning and ready for his procedure. Exam (Progress Note) - Constitutional Vitals: Period Temp Pulse Resp BP Sys/Rayo Pulse Ox Last 24 Hr 96.8 F-98.2 F 73-91 16-77 79-123/53-62 89-100 General appearance: mild distress - Head Head exam: Present: normocephalic - Eye Eye exam: Present: EOMI - Respiratory Respiratory exam: Present: clear to auscultation bilaterally - Cardiovascular Cardiovascular exam: Present: regular rate and rhythm - GI/Abdominal GI/Abdominal exam: Present: distended, tenderness (Diffuse), soft. Absent: guarding, rebound - Extremities Exam Extremities exam: Absent: edema - Neurological Exam Neurological exam: Present: alert, oriented X3 - Psychiatric Psychiatric exam: Present: normal affect, normal mood - Skin Skin exam: Present: warm Results - Labs CBC & BMP: 07/23/17 06:00 07/23/17 06:00
--- NOTE | 2017-07-23 09:28 | Anesthesia Post-Op ---
Anesthesia Post OP - Post Ansesthetic Evaluation Patient seen in post op: Yes Resp: within normal limits CV: within normal limits Mental: within normal limits Temp: within normal limits [id number]: within normal limits Nausea and Vomiting: within normal limits Pain: within normal limits
[2017-07-23] MEDS ORDERED: PIPERACILLIN/TAZOBACTAM 3,375 MG in SODIUM CHLORIDE 0.9% 100 ML IV SCH (09:30)
--- NOTE | 2017-07-23 09:46 | Oncology Progress Note ---
Oncology Subjective PN Interval history: Mr. Lopez has apparently developed inflammatory bowel disease of some type. He has been started on Zosyn resting the dose. He has a history of both lung cancer and colon cancer I am proceeding with restaging to look for any evidence of recurrence of either malignancy. However , from the standpoint of his malignancy, the colonoscopy report is encouraging. He has been off chemotherapy for some time and I need to particularly evaluate his lungs and his liver. On physical examination he is both chronically and acutely ill appearing. Eyes : Normal lids and conjunctivae. ENT: His oral mucosa is dry. There are no exudates. His trachea is midline. He has no neck masses. His hearing is normal. Lungs: Breath sounds are coarse throughout but I hear no rubs, rales or rhonchi. There is symmetrical unlabored chest motion with respiration. Cardiovascular: His heart rhythm is regular without murmur, gallop or rub. There is no jugular venous distention or cyanosis but he has significant clubbing. Abdomen: No ascites or obvious distention presently. Exam - Constitutional Vitals: Period Temp Pulse Resp BP Sys/Aryo Pulse Ox Last 24 Hr 96.8 F-98.2 F 68-91 16-77 79-123/44-62 89-100 Results - Labs CBC & BMP: 07/23/17 06:00 07/23/17 06:00 Quality Measures - VTE Contraindication to Pharmacological VTE Prophylaxis: High Risk of Bleeding
[2017-07-23] MEDS: PANTOPRAZOLE 40 MG VIAL IV SCH ×2 (10:08→21:45)
[2017-07-23] MEDS: methylPREDNISolone SOD SUC 125 MG/2 ML VIAL IV SCH ×2 (10:11→18:26)
[2017-07-23] MEDS: PIPERACILLIN/TAZOBACTAM 4,500 MG in SODIUM CHLORIDE 0.9% 100 ML IV SCH ×3 (11:04→21:41)
[2017-07-23] MEDS ORDERED: PHENYLEPHRINE 1 MG/10 ML SYRINGE IV ONE (11:53)
[2017-07-23] MEDS ORDERED: LIDOCAINE 100 MG/5 ML SYRINGE ONE (11:53)
[2017-07-23] MEDS ORDERED: PROPOFOL 200 MG/20 ML VIAL IV ONE (11:53)
[2017-07-23] MEDS: POTASSIUM CHLORIDE 20 MEQ TABLET PO SCH ×2 (13:36→21:43)
[2017-07-23] MEDS: MULTIVITAMIN (CENTRUM) TABLET PO SCH (13:36)
[2017-07-23] MEDS: THEOPHYLLINE ER (24 HR) 400 MG CAPSULE PO SCH (13:37)
[2017-07-23] MEDS: ASPIRIN EC 81 MG TABLET PO SCH (13:37)
[2017-07-23] MEDS: FLUTICASONE/SALMETEROL 500-50 DISKUS 14 DOSE INH SCH ×2 (13:37→21:53)
--- NOTE | 2017-07-23 13:48 | CT Report ---
Referring physician: Josue Joyner EXAM: CT chest, abdomen and pelvis with contrast DATE: 07/23/2017 COMPARISON: 04/07/2017 REASON: History of lung cancer, colon cancer, colitis TECHNIQUE: Axial images of the chest, abdomen and pelvis were obtained after administration of 100 cc of Omnipaque 350 IV contrast. Oral contrast was also administered. Sagittal and coronal reformatted images were provided. Total DLP was 457.30 mGy*cm. FINDINGS:: The heart remains normal in size with no evidence of aortic dissection or pulmonary emboli. Left subclavian venous access catheter. Stable small hypodensity in the right lobe of the thyroid gland. No chest lymphadenopathy. Bullous emphysema with chronic scarring at the lung apices. 46 x 40 x 31 mm noncalcified irregular masslike density in the inferior right upper lobe adjacent to the right minor fissure now measures 40 x 16 x 9 mm. No progressive parenchymal findings are identified. The liver remains normal in size with no masses, dilated ducts, or calcified gallstones. The spleen remains borderline in size. The pancreas, adrenal glands, and kidneys are stable in appearance. Calcification and atheromatous plaque formation in the aorta which measures 27 mm in maximum diameter. No adenopathy. No dilatation of the small bowel. Prior right colectomy with thickening of the wall of the colon. Interposition of the of the bowel right. No free air or free fluid. Very minimal air in the urinary bladder. Calcification in the prostate which measures 44 mm in diameter. Small fat-containing inguinal hernias. Chronic L2 compression fracture. Superimposed degenerative changes. IMPRESSION: Left subclavian venous access catheter. Stable small hypodensity in the right lobe of thyroid gland. Bullous emphysema with chronic scarring. Smaller irregular mass in the inferior right upper lobe measuring 40 x 16 x 9 mm compared to 46 x 40 x 31 mm on the previous exam in patient with known carcinoma of the lung. 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 Prior right colectomy with diffuse thickening of the wall of the colon consistent with colitis. Small fat-containing inguinal hernias with nonspecific enlargement of the prostate. Chronic L2 compression fracture. The CT exam was performed using one or more of the following dose reduction techniques: Automated exposure control and adjustment of the mA and/or kV according to patient size. PROCEDURE INTERPRETED AT [facility] DEPARTMENT OF RADIOLOGY Final Report Signed by: Dr. Nubia Moore
[2017-07-23] MEDS: MESALAMINE 800 MG TABLET PO SCH ×2 (16:23→21:42)
[2017-07-23] MEDS: DEXT 5% NACL 0.45% KCL 20 MEQ 20 MEQ/1,000 ML BAG IV SCH (18:29)
[2017-07-24] MEDS: methylPREDNISolone SOD SUC 125 MG/2 ML VIAL IV SCH ×3 (02:48→18:03)
[2017-07-24] MEDS: PIPERACILLIN/TAZOBACTAM 4,500 MG in SODIUM CHLORIDE 0.9% 100 ML IV SCH ×5 (02:51→21:15)
[2017-07-24 05:43] LABS: Basophils % 0.1 % (0.0-0.8); Hematocrit 28.1 VOL% (42.0-52.0); Hemoglobin 9.6 GM/DL (14.0-18.0); Immature Granulocytes % 0.7 %; Immature Granulocytes Absolute 0.05 #; Lymphocytes % 15.5 % (21.2-54.2); Mean Corpuscular HGB Conc 34.2 GM/DL (32-36); Mean Corpuscular Hemoglobin 33 PG (27-34); Mean Corpuscular Volume 95.3 FL (87-102); Mean Platelet Volume 8.9 FL (9.6-12.0); Monocytes # 0.2 10*3/uL (0.11-0.8); Monocytes % 2.7 % (1.7-12.7); Neutrophils # 5.4 10*3/uL (1.4-7.4); Platelet Count 407 T/CUMM (130-400); Red Blood Count 2.95 MC/CUMM (3.8-5.5); Red Cell Distribution Width 13.2 % (9.3-17.3); White Blood Count 6.7 T/CUMM (4-12)
[2017-07-24 06:14] LABS: Albumin 1.7 G/DL (3.4-5.0); Bilirubin,Total 1.8 MG/DL (0.2-1.0); Calcium 7.6 MG/DL (8.5-10.1); Total Protein 4.5 G/DL (6.4-8.3)
[2017-07-24 06:33] LABS: Band Neutrophils 6 % (0-10); Giant Platelets Few; Hypochromasia 1+; Lymphocytes 14 % (20-55); Ovalocytes Slight; Platelet Estimate Adequate; Segmented Neutrophils 80 % (50-85); Total Cells Counted 100
[2017-07-24] MEDS: ALBUTEROL/IPRATROPIUM 3 ML NEB RESP TX SCH ×4 (08:06→19:30)
--- NOTE | 2017-07-24 09:11 | Oncology Progress Note ---
Oncology Subjective PN Interval history: Colitis: He is on treatment now under the supervision of Dr. Kruse. His abdominal bloating and pain have improved since yesterday. Continuing intravenous medications for colitis. Non-small cell lung cancer: CT scan of the chest, abdomen and pelvis done yesterday. He has a smaller irregular mass in the inferior right upper lobe measuring 40 x 16 x 9 mm compared to previous CT scan done April 07, 2017, when the same mass measured 46 x 40 x 31 mm. He has declined further chemotherapy for the time being because he cannot afford it. His thoracic aorta demonstrates ectasia. There was no evidence of metastatic disease to the liver or other abdominal organs including pancreas, adrenal glands and kidneys. We will continue to watch his lung cancer without treatment. History of colon cancer: There is no evidence of recurrence of the colon cancer. COPD: Stable Anemia:Hemoglobin today is down to 9.6. He has a normal white cell count and an elevated platelet count of 407,000.There is no evidence of recurrence of the colon cancer. Physical examination: General: Chronically and acutely ill. Eyes: Nonicteric. Lids and conjunctive are normal. ENT: Poor dentition. His hearing is normal. His trachea is midline his voice is clear. Lungs: Coarse breath sounds throughout with prolonged expiratory phase of respiration but no loud wheezing. Cardiovascular: His heart rhythm is regular without murmur, gallop or rub. No jugular venous distention or cyanosis. He has clubbing that is stable. Abdomen: He is not is tender in his abdomen is not distended. Exam - Constitutional Vitals: Period Temp Pulse Resp BP Sys/Rayo Pulse Ox Last 24 Hr 96.1 F-97.8 F 67-96 16-77 74-108/44-76 93-100 Results - Labs CBC & BMP: 07/24/17 04:56 07/24/17 04:56 Quality Measures - VTE Contraindication to Pharmacological VTE Prophylaxis: High Risk of Bleeding
[2017-07-24] MEDS: PANTOPRAZOLE 40 MG VIAL IV SCH (09:22)
[2017-07-24] MEDS: POTASSIUM CHLORIDE 20 MEQ TABLET PO SCH ×2 (09:22→21:14)
[2017-07-24] MEDS: ASPIRIN EC 81 MG TABLET PO SCH (09:22)
[2017-07-24] MEDS: MULTIVITAMIN (CENTRUM) TABLET PO SCH (09:22)
[2017-07-24] MEDS: THEOPHYLLINE ER (24 HR) 400 MG CAPSULE PO SCH (09:22)
[2017-07-24] MEDS: FLUTICASONE/SALMETEROL 500-50 DISKUS 14 DOSE INH SCH ×2 (09:23→21:19)
[2017-07-24] MEDS: MESALAMINE 800 MG TABLET PO SCH ×3 (09:25→21:13)
[2017-07-24] MEDS: DEXT 5% NACL 0.45% KCL 20 MEQ 20 MEQ/1,000 ML BAG IV SCH ×3 (10:36→23:11)
--- NOTE | 2017-07-24 12:00 | Gastrointestinal Progress Note ---
Assessment and Plan (1) Ulcerative colitis with rectal bleeding Status: Acute Assessment and plan: Biopsies are pending but the patient appears to have some of the worst ulcerative colitis seen in my life. This has been involvement with slight sparing of the rectum but severe deep crater is all the way through to the connection with the small bowel at 85 cm in the distal transverse colon. This may be a bacterial infection with ulcerations also associated with recent chemotherapy as well. Biopsies are pending, given the severity of the appearance am going to treat it like ulcerative colitis. I am starting some Solu-Medrol as well as high-dose a Asacol at 1600 mg TID, will start some Zosyn to help prevent bacterial translocation given the patient's steroid dosing. Will watch CBC to see if this remains in acceptable range. If the colitis cannot be controlled with use of steroids and and Asacol we may have to consider biologic agents such as Humira or complete colectomy. 07/24/17--The patient is doing considerably better now on Solu-Medrol IV as well as Zosyn IV. White blood cell count continues to fall and he is tolerating the Asacol fairly well. I discussed his case with pharmacy as I would like to advance him to prednisone oral dosing tomorrow, at the same time we put him on Augmentin 875 mg twice daily to substitute for the Zosyn tomorrow in preparation for potential discharge perhaps on Thursday or Thursday depending on how he does. I have written prescriptions in the front of the chart for these doses to be given to the patient upon his discharge. I would like him to follow -up in my office in 6 weeks to see how he is doing on his taper and with the Asacol HD 1600 mg 3 times daily. His prednisone taper has also been written starting at 60 mg per day for a full week and will taper off after a period of 5 weeks. Will hold off on enema treatment as I am fairly sure this patient would not be compliant with that regimen. I will have my partners look in on him over the weekend to make sure that he is doing adequately and add any additional therapy as they deem necessary. Current Visit: Yes (2) Lower GI bleed Status: Acute Assessment and plan: I suspect this may be related to an underlying colitis versus hemorrhoidal bleeding--patient states that he is going to the bathroom some 10-12 times per day although this has not been documented by the nursing staff. He has been told to keep them appraised of his number of stools per day and we will continue to watch his hematocrit at least on a daily basis as he appears to be only having some slight bright red blood/spotting occurring. Will order another CBC so we can also follow his white blood cell count on a daily basis. 07/23/17--as noted above, severe pancolitis of the remaining colon likely ulcerative colitis. 07/24/17--Likely ulcerative colitis, awaiting biopsy confirmation. Prednisone and Asacol written as it is pantoprazole and Augmentin scripts, these are in the front of the chart. Current Visit: Yes (3) Nausea vomiting and diarrhea Status: Acute Assessment and plan: Patient is having nausea, vomiting, and diarrhea. This likely is related to some systemic infection possibly coming from his colon, if not related to previous chemotherapy or underlying gastritis. I will make sure that he is continuing to get pantoprazole 40 mg twice daily through the IV route. This should calm down his stomach, and we will perform colonoscopy tomorrow to look and see how severe inflammation is in his colon. We should also be able see if there is a great deal of inflammation in the small bowel consistent with small bowel overgrowth. Depending on findings, I may start the Xifaxan versus another antibiotic such as Cipro/Flagyl in combination versus Augmentin potentially. The fact that Xifaxan is nonabsorbable makes it uniquely suited for treating small bowel overgrowth. and colonic infections. 07/23/17--As noted above. Nausea and vomiting likely in association with the above colitis. 07/24/17--Tolerating his solid food better now. The prednisone will certainly make him more hungry. Stool is thickening. In the short-term I have told him to follow a low lactose and low residue diet. Current Visit: Yes (4) Generalized abdominal pain Status: Acute Assessment and plan: I believe this is related to the underlying colitis and/or small bowel overgrowth may be present. We will likely perform biopsies in the colon itself looking to rule out microscopic and collagenous colitis and see if there is any evidence of the previously noted acute self-limited colitis. We need to make sure the patient does not have ischemic colitis. I suspect there will be no further evidence of colon cancer as his last colonoscopy was done in 2016. 07/23/17--Severe abdominal pain is likely due to the pancolitis as noted above this is likely ulcerative versus less likely bacterial/infectious colitis not ischemic. 07/24/17--improving. Current Visit: Yes (5) History of colon cancer Status: Acute Assessment and plan: We will look for further evidence of polyps but the patient has his left hemicolectomy done done 2007 has not had a recurrence of the colon cancer since that time. Most recent colonoscopy did not demonstrate any polyps on 05/14/16. Repeat study tomorrow mostly to look for evidence of ischemic colitis versus infectious colitis. 07/23/17--No polyps could be seen given the inflammation of the remaining colon. Multiple biopsies were obtained. There will be some post biopsy/colonoscopy bleeding. 07/24/17--We will likely repeat colonoscopy in 3 versus 5 years. Current Visit: Yes Gastroenterology - PN: Subj Interval history: Patient's abdominal pain is down to about a 6 out of 10 with occasional exacerbations of squeezing type pain but he is able to eat his full meals and has better nausea control and stools are becoming a little bit thicker now with the use of Solu-Medrol and Zosyn. I think we can consider switching this patient over to oral medications tomorrow utilizing Augmentin 875 mg twice daily in addition to prednisone 60 mg daily. Exam (Progress Note) - Constitutional Vitals: Period Temp Pulse Resp BP Sys/Rayo Pulse Ox Last 24 Hr 96.1 F-97.6 F 67-92 16-20 74-98/48-59 93-99 General appearance: mild distress - Head Head exam: Present: normocephalic - Eye Eye exam: Present: EOMI Pupils: Present: MIR - ENT ENT exam: Present: normal exam - Respiratory Respiratory exam: Present: clear to auscultation bilaterally. Absent: rhonchi, stridor, wheezes - Cardiovascular Cardiovascular exam: Present: regular rate and rhythm - GI/Abdominal GI/Abdominal exam: Present: normal bowel sounds, distended, tenderness ( Improved tenderness in all areas mostly bilateral lower quadrants), soft. Absent: guarding - Extremities Exam Extremities exam: Absent: edema - Neurological Exam Neurological exam: Present: alert, oriented X3 - Psychiatric Psychiatric exam: Present: normal affect, normal mood - Skin Skin exam: Present: warm Results - Labs CBC & BMP: 07/24/17 04:56 07/24/17 04:56
--- NOTE | 2017-07-24 12:24 | Pathology Report from [facility] ---
[facility] [place] ACCESSION # : [id number] PATIENT NAME : Jesús Morin ORDERING DR : Jayce Felix MD CLINICAL HX: GI bleed POST-OP DX: Same SPECIMEN INFO: Colon BXS #1 Terminal ileum #2 Tansverse & Descending proximal #3 Distal descending & sigmoid #4 Rectum GROSS DESCRIPTION: Received in formalin in four parts labeled:#1 JESÚS PATIENCE & #1 is a 1.0 x 0.3 cm aggregate of lui tissue submitted in cassette #1.#2 JESÚS PATIENCE & #2 is a 0.7 x 0.4 cm aggregate of lui tissue submitted in cassette #2.#3 JESÚS PATIENCE & #3 is a 0.9 x 0.8 cm aggregate of lui tissue submitted in cassette #3.#4 JESÚS PATIENCE & #4 is a 0.6 x 0.3 cm aggregate of lui tissue submitted in cassette #4. DIAGNOSIS FOR JESÚS MORIN: #1 COLON BIOPSY TERMINAL ILEUM: Benign lymphoid aggregates and normal villous architecture; no evidence of granulomas, crypt abscesses, tumor.#2 COLON BIOPSY TRANSVERSE & DESCENDING PROXIMAL: Glandular distortion with marked acute and chronic inflammation, crypt abscesses , ulceration.#3 COLON BIOPSY DISTAL, DESCENDING & SIGMOID: Glandular distortion with marked acute and chronic inflammation, crypt abscesses.#4 COLON BIOPSY RECTUM: Glandular distortion with marked acute and chronic inflammation, ulceration.COMMENT: Consistent with active inflammatory bowel disease/ ulcerative colitis. COLLECTED DATE: 07/23/2017 [facility] REPORT DATE: 07/24/2017 ELECTRONICALLY SIGNED BY: Margaret Hill M.D. 07/24/2017 - 10:22:38 CARMITA
[2017-07-25 04:31] LABS: Basophils % 0.1 % (0.0-0.8); Hematocrit 26.5 VOL% (42.0-52.0); Hemoglobin 8.9 GM/DL (14.0-18.0); Immature Granulocytes % 1.1 %; Immature Granulocytes Absolute 0.17 #; Lymphocytes # 1.5 10*3/uL (1.4-4.0); Lymphocytes % 10.3 % (21.2-54.2); Mean Corpuscular HGB Conc 33.6 GM/DL (32-36); Mean Corpuscular Hemoglobin 32 PG (27-34); Mean Corpuscular Volume 95.7 FL (87-102); Mean Platelet Volume 9.1 FL (9.6-12.0); Monocytes # 0.6 10*3/uL (0.11-0.8); Monocytes % 4.2 % (1.7-12.7); Neutrophils # 12.5 10*3/uL (1.4-7.4); Neutrophils % 84.3 % (38.7-73.9); Platelet Count 445 T/CUMM (130-400); Red Blood Count 2.77 MC/CUMM (3.8-5.5); Red Cell Distribution Width 13.5 % (9.3-17.3); White Blood Count 14.8 T/CUMM (4-12)
[2017-07-25 05:04] LABS: Albumin 1.8 G/DL (3.4-5.0); Bilirubin,Total 1.2 MG/DL (0.2-1.0); Calcium 7.5 MG/DL (8.5-10.1); Osmolality,Calculated 280.3 MOS/KG (273-304); Potassium 4.1 MMOL/L (3.5-5.1); Total Protein 4.5 G/DL (6.4-8.3)
[2017-07-25] MEDS: ALBUTEROL/IPRATROPIUM 3 ML NEB RESP TX SCH ×4 (08:29→19:28)
[2017-07-25] MEDS: MULTIVITAMIN (CENTRUM) TABLET PO SCH (10:24)
[2017-07-25] MEDS: predniSONE 20 MG TABLET PO SCH (10:24)
[2017-07-25] MEDS: POTASSIUM CHLORIDE 20 MEQ TABLET PO SCH ×2 (10:24→20:09)
[2017-07-25] MEDS: AMOXICILLIN/CLAV 875 MG TABLET PO SCH ×2 (10:24→20:09)
[2017-07-25] MEDS: THEOPHYLLINE ER (24 HR) 400 MG CAPSULE PO SCH (10:25)
[2017-07-25] MEDS: MESALAMINE 800 MG TABLET PO SCH ×3 (10:25→20:09)
[2017-07-25] MEDS: ASPIRIN EC 81 MG TABLET PO SCH (10:25)
[2017-07-25] MEDS: FLUTICASONE/SALMETEROL 500-50 DISKUS 14 DOSE INH SCH ×2 (10:28→20:11)
--- NOTE | 2017-07-25 10:30 | Oncology Progress Note ---
Oncology Subjective PN Interval history: Colitis: He is on treatment now under the supervision of Dr. Kruse. His abdominal bloating and pain have improved since yesterday. Continuing intravenous medications for colitis. Dr. Felix describes this is the worst colitis he is ever seen. Non-small cell lung cancer: CT scan of the chest, abdomen and pelvis done yesterday. He has a smaller irregular mass in the inferior right upper lobe measuring 40 x 16 x 9 mm compared to previous CT scan done April 07, 2017, when the same mass measured 46 x 40 x 31 mm. He has declined further chemotherapy for the time being because he cannot afford it. His thoracic aorta demonstrates ectasia. There was no evidence of metastatic disease to the liver or other abdominal organs including pancreas, adrenal glands and kidneys. We will continue to watch his lung cancer without treatment. I am not certain at this point that he is willing to take further chemotherapy for his lung cancer. History of colon cancer: There is no evidence of recurrence of his colon cancer. Emaciation, cachexia and malnutrition: His serum albumin is 1.8 which reflects the fact that the patient is malnourished and has emaciation and cachexia. COPD: Stable Anemia:Hemoglobin today is down to 8.9. He has a white cell count of 14,800 and an elevated platelet count of 445,000. Exam - Constitutional Vitals: Period Temp Pulse Resp BP Sys/Rayo Pulse Ox Last 24 Hr 97.4 F-98.6 F 65-97 16-20 82-91/50-53 92-98 Results - Labs CBC & BMP: 07/25/17 02:48 07/25/17 02:48 Quality Measures - VTE Contraindication to Pharmacological VTE Prophylaxis: High Risk of Bleeding Specialty Discharge - Follow Up or Referrals Follow up with: Jayce Felix MD [Physician] - (Follow up with Dr. Felix in 6 weeks on discharge.)
[2017-07-25] MEDS: DEXT 5% NACL 0.45% KCL 20 MEQ 20 MEQ/1,000 ML BAG IV SCH ×2 (14:12)
[2017-07-26 03:31] LABS: Basophils % 0.1 % (0.0-0.8); Hematocrit 26.4 VOL% (42.0-52.0); Hemoglobin 8.8 GM/DL (14.0-18.0); Immature Granulocytes % 5.2 %; Immature Granulocytes Absolute 0.54 #; Lymphocytes % 18.8 % (21.2-54.2); Mean Corpuscular HGB Conc 33.3 GM/DL (32-36); Mean Corpuscular Hemoglobin 33 PG (27-34); Mean Corpuscular Volume 97.8 FL (87-102); Mean Platelet Volume 8.9 FL (9.6-12.0); Monocytes # 0.7 10*3/uL (0.11-0.8); Monocytes % 6.5 % (1.7-12.7); NRBC # 0.02 10*3/uL; Neutrophils # 7.2 10*3/uL (1.4-7.4); Neutrophils % 69.4 % (38.7-73.9); Platelet Count 426 T/CUMM (130-400); Red Cell Distribution Width 13.8 % (9.3-17.3); White Blood Count 10.4 T/CUMM (4-12)
[2017-07-26] MEDS: DEXT 5% NACL 0.45% KCL 20 MEQ 20 MEQ/1,000 ML BAG IV SCH ×2 (03:46→17:45)
[2017-07-26 04:00] LABS: Alanine Aminotransferase 12 U/L (16-61); Albumin 1.8 G/DL (3.4-5.0); Alkaline Phosphatase 71 U/L (45-117); Aspartate Amino Transferase 12 U/L (0-37); Bilirubin,Total < 0.39 MG/DL (0.2-1.0); Blood Urea Nitrogen 5 MG/DL (7-18); Calcium 7.5 MG/DL (8.5-10.1); Glucose 119 MG/DL (74-106); Osmolality,Calculated 280.1 MOS/KG (273-304); Potassium 4.5 MMOL/L (3.5-5.1); Sodium 142 MMOL/L (136-145); Total Protein 4.5 G/DL (6.4-8.3)
[2017-07-26 05:18] LABS: Band Neutrophils 1 % (0-10); Lymphocytes 15 % (20-55); Myelocytes 1 %; Platelet Estimate Increased; Segmented Neutrophils 78 % (50-85); Total Cells Counted 100
[2017-07-26] MEDS: MULTIVITAMIN (CENTRUM) TABLET PO SCH (09:12)
[2017-07-26] MEDS: MESALAMINE 800 MG TABLET PO SCH ×3 (09:12→21:21)
[2017-07-26] MEDS: ASPIRIN EC 81 MG TABLET PO SCH (09:13)
[2017-07-26] MEDS: FLUTICASONE/SALMETEROL 500-50 DISKUS 14 DOSE INH SCH ×2 (09:13→21:24)
[2017-07-26] MEDS: AMOXICILLIN/CLAV 875 MG TABLET PO SCH ×2 (09:13→21:21)
[2017-07-26] MEDS: VIT B12 SL SCH (09:13)
[2017-07-26] MEDS: THEOPHYLLINE ER (24 HR) 400 MG CAPSULE PO SCH (09:13)
[2017-07-26] MEDS: predniSONE 20 MG TABLET PO SCH (09:13)
[2017-07-26] MEDS: POTASSIUM CHLORIDE 20 MEQ TABLET PO SCH ×2 (09:13→21:21)
--- NOTE | 2017-07-26 11:01 | Oncology Progress Note ---
Oncology Subjective PN Interval history: Colitis: He is on treatment now under the supervision of Dr. Kruse. His abdominal bloating and pain have improved since yesterday. Continuing intravenous medications for colitis. Dr. Felix describes this is the worst colitis he is ever seen. He is continuing IV medications as treatment for this. Today he is having no significant abdominal pain and no nausea or vomiting. Stage IIIB adenocarcinoma of the lung: CT scan of the chest, abdomen and pelvis done yesterday. He has a smaller irregular mass in the inferior right upper lobe measuring 40 x 16 x 9 mm compared to previous CT scan done April 07, 2017, when the same mass measured 46 x 40 x 31 mm. He has declined further chemotherapy for the time being because he cannot afford it. His thoracic aorta demonstrates ectasia. There was no evidence of metastatic disease to the liver or other abdominal organs including pancreas, adrenal glands and kidneys. We will continue to watch his lung cancer without treatment. I am not certain at this point that he is willing to take further chemotherapy for his lung cancer. History of colon cancer: There is no evidence of recurrence of his colon cancer. Emaciation, cachexia and malnutrition: His serum albumin is 1.8 which reflects the fact that the patient is malnourished and has emaciation and cachexia. COPD: Stable Anemia:Hemoglobin today is down to 8.8. He has a white cell count of 10,400 and an elevated platelet count of 426,000. Physical examination: General: The patient is chronically ill-appearing but in no acute distress presently. Eyes: Normal lids and conjunctivae. ENT: His oral mucosa is normal. His trachea is midline and he has no neck masses. Lungs: Breath sounds are coarse and diminished throughout both lung rosado without rubs, rales or rhonchi. There is symmetrical unlabored chest motion with respiration. Expiratory phase of respiration is significantly prolonged. Cardiovascular: His heart rhythm is regular without murmur, gallop or rub. There is no jugular venous distention, cyanosis or edema. He has clubbing. Abdomen: Bowel sounds are present. No ascites. Minimal abdominal tenderness and no palpable masses. Neurologic: Cranial nerves II through XII are intact. There are no focal neurologic deficits. Psychiatric: He is oriented to time, place, person and situation with normal mood and affect. Overall, his condition seems to be improving. However, he remains extremely debilitated, weak and needs to continue IV antibiotics. Exam - Constitutional Vitals: Period Temp Pulse Resp BP Sys/Rayo Pulse Ox Last 24 Hr 96.7 F-98.6 F 66-92 16-20 81-111/51-69 91-99 Results - Labs CBC & BMP: 07/26/17 01:55 07/26/17 01:55 Quality Measures - VTE Contraindication to Pharmacological VTE Prophylaxis: High Risk of Bleeding Specialty Discharge - Follow Up or Referrals Follow up with: Jayce Felix MD [Physician] - (Follow up with Dr. Felix in 6 weeks on discharge.)
[2017-07-26] MEDS: ALBUTEROL/IPRATROPIUM 3 ML NEB RESP TX SCH ×4 (11:53→20:07)
--- NOTE | 2017-07-26 12:22 | Gastrointestinal Progress Note ---
Assessment and Plan (1) Ulcerative colitis with rectal bleeding Status: Acute Assessment and plan: PLEASE NOTE -- automatic citation of patient information is unavoidable in this electronic note. I have made a reasonable effort to review the information cited , but it is not a part of my evaluation, impression, or recommendation unless specifically discussed in the dictated text that follows. As well, voice recognition software was used in the creation of this clinical note. Reasonable effort was made to identify and correct gross errors. Despite proofreading, errors in hamper maker may be present, including nonsense verbiage at times. If you encounter such an error, please contact me at [phone] for discussion and correction. -- Paul Chief complaint: Severe UC 24 hour events: Continued improvement, repeat chest imaging with lung cancer reportedly smaller Subjective: [Mr. Jesús Lopez is a 71-year-old male with lung cancer admitted for severe pancolitis. Pathology report consistent with acute and chronic inflammation, which would be consistent with ulcerative colitis. Patient has significantly improved, near complete resolution of his abdominal pain, states abdominal spasms are gone, only 2 bowel movements in the last 24 hours, without blood. Stated on Thursday he tried to eat meat which led to emesis, so is just being careful about what he is eating. Tolerating fruits, vegetables, grilled cheese very well. Incidentally stated that he is very compliant with his Advair medication, taking it twice daily, but that his DuoNeb breathing treatments he only uses once or twice a day due to the fact that he is very busy at home and doing projects. Medications: Reviewed with no gastrointestinal related changes noted Amoxicillin clavulanate 875 mg p.o. twice daily Aspirin 81 mg daily Iron/MVA/folic acid daily Mesalamine, Asacol 1.6 g p.o. 3 times daily scheduled Prednisone 60 mg daily scheduled Vitamin B12 5000 mcg sublingual daily REVIEW OF SYSTEMS: Complete other review of systems negative except as noted in the HPI PHYSICAL EXAMINATION: CONSTITUTIONAL: Vital signs reviewed as documented above. In no acute distress. Nontoxic-appearing. EYES: Anicteric conjunctiva. Extra-ocular movements are intact and symmetric. EARS: Able to hear speech at conversational volume level, no external trauma/ masses. LUNGS: No increased work of breathing or accessory muscle use. GI/ABDOMEN: Thin abdomen, soft, nontender to palpation, no rebound tenderness, nondistended, no rigidity. No palpable mass. No appreciable hepatosplenomegaly. SKIN: No rash on face, arms, or hands. No palpable lesions MUSCULOSKELETAL: Sitting up in bed eating lunch comfortably with good energy, muscle tone appears normal without any abnormal movements. PSYCH: Normal affect. Alert and oriented to person, place, and time. Laboratory: Personally reviewed CBC with WBC 10.4, hemoglobin 8.8, platelets 426 Chemistrycalcium 7.5, albumin 1.8 Liver associated enzymes within normal limits Radiology: Personally reviewed reports and images with no pertinent changes unless noted here: Assessments: #Acute on chronic colitis. Appears consistent with ulcerative colitis. Responding well to IV antibiotics which have been successfully transitioned to amoxicillin clavulanate for the last 48 hours with persistent improvement, downtrending white blood cell count, resolution of abdominal pain, tolerating p.o. diet, decrease in bowel movements, no blood seen in bowel movements. Significant clinical improvement #Urinary tract infection, with E. coli, castillo-sensitive. Complicated as patient is a male. Recommend full 10 day course. #COPD. Patient compliant with Advair, noncompliant with duo nebs at home. Not on oxygen at home, respiratory therapist reports patient does not currently need oxygen here in the hospital. #Other specified counseling -- The patient was seen for greater than 30 minutes. The patient was counseled for greater than 50% of this time regarding differential diagnosis, likely diagnosis, diagnostic and therapeutic alternatives, risks/benefits/alternatives of medications and procedures, and plan of care generally. The patient expressed understanding and wishes to proceed. Recommendations: -HIV-ordered -Check vitamin V23-kguoxue, stop high-dose sublingual tablet if no longer needed -Iron studies-ordered -Requires total pip/tazo + Augmentin for at least 10 days for complicated UTI in male -recommend total 14 days of antibiotics for UC -recommend prednisone 40mg daily until verbal follow-up with Dr. Kruse, at which time he may be transitioned to immunosuppressive therapy, such as Humira vs other, and prednisone can be weaned quickly. -Consider IV iron for more rapid replacement if iron levels are low as expected , and to avoid potential significant GI upset with oral therapy -Patient will need outpatient colonoscopy in approximately 4 months after initiation of therapy to ensure patient is responding endoscopically. - Primary provider to consider transition to daily use Spiriva, which should be less expensive than Atrovent, as well as trial off of oxygen for home oxygen assessment -no clear contraindications to discharge from a GI standpoint today, although reasonable to keep patient through Thursday to coordinate outpatient UC care with Dr. Kruse. Discussed with Dr. Martinez. Genesis Miller MD, MPH [employer] Current Visit: Yes Exam (Progress Note) - Constitutional Vitals: Period Temp Pulse Resp BP Sys/Rayo Pulse Ox Last 24 Hr 96.7 F-98.6 F 66-90 16-20 81-111/51-58 91-99 Results - Labs CBC & BMP: 07/26/17 01:55 07/26/17 01:55 Specialty Discharge - Follow Up or Referrals Follow up with: Jayce Felix MD [Physician] - (Follow up with Dr. Felix in 6 weeks on discharge.)
[2017-07-26 12:35] LABS: % Iron Saturation 35.7 % (18-50)
[2017-07-26 12:44] LABS: Folate 10.1 NG/ML (5.4-24.0); Vitamin B12 > 2000 PG/ML (211-911)
[2017-07-26] MEDS ORDERED: ENOXAPARIN 40 MG/0.4 ML SYRINGE SUBCUT SCH (21:00)
[2017-07-27 03:26] LABS: Basophils % 0.2 % (0.0-0.8); Hematocrit 31.3 VOL% (42.0-52.0); Hemoglobin 10.3 GM/DL (14.0-18.0); Immature Granulocytes % 3.7 %; Immature Granulocytes Absolute 0.36 #; Lymphocytes # 2.1 10*3/uL (1.4-4.0); Mean Corpuscular HGB Conc 32.9 GM/DL (32-36); Mean Corpuscular Hemoglobin 32 PG (27-34); Mean Corpuscular Volume 98.1 FL (87-102); Mean Platelet Volume 8.7 FL (9.6-12.0); Monocytes # 0.6 10*3/uL (0.11-0.8); Monocytes % 6.2 % (1.7-12.7); Neutrophils # 6.5 10*3/uL (1.4-7.4); Neutrophils % 67.9 % (38.7-73.9); Platelet Count 431 T/CUMM (130-400); Red Blood Count 3.19 MC/CUMM (3.8-5.5); Red Cell Distribution Width 13.6 % (9.3-17.3); White Blood Count 9.6 T/CUMM (4-12)
[2017-07-27 03:55] LABS: Bilirubin,Total 0.5 MG/DL (0.2-1.0); Osmolality,Calculated 277.4 MOS/KG (273-304); Potassium 4.7 MMOL/L (3.5-5.1); Total Protein 4.9 G/DL (6.4-8.3)
[2017-07-27] MEDS: ALBUTEROL/IPRATROPIUM 3 ML NEB RESP TX SCH ×2 (07:18→11:16)
[2017-07-27] MEDS: DEXT 5% NACL 0.45% KCL 20 MEQ 20 MEQ/1,000 ML BAG IV SCH ×2 (07:59→10:53)
[2017-07-27] MEDS ORDERED: HEPARIN LOCK FLUSH 500 UNIT/5 ML SYRINGE IV ONE ×2 (09:26→13:24)
[2017-07-27] MEDS: MESALAMINE 800 MG TABLET PO SCH (10:00)
[2017-07-27] MEDS: POTASSIUM CHLORIDE 20 MEQ TABLET PO SCH (10:02)
[2017-07-27] MEDS: THEOPHYLLINE ER (24 HR) 400 MG CAPSULE PO SCH (10:03)
[2017-07-27] MEDS: AMOXICILLIN/CLAV 875 MG TABLET PO SCH (10:03)
[2017-07-27] MEDS: MULTIVITAMIN (CENTRUM) TABLET PO SCH (10:04)
[2017-07-27] MEDS: predniSONE 20 MG TABLET PO SCH (10:05)
[2017-07-27] MEDS: ASPIRIN EC 81 MG TABLET PO SCH (10:06)
--- NOTE | 2017-07-27 10:06 | Oncology Progress Note ---
Oncology Subjective PN Interval history: Mr. Lopez was admitted with abdominal pain and it turned out to be colitis. Colitis: He is on treatment now under the supervision of Dr. Kruse. His abdominal bloating and pain have improved since yesterday. Continuing intravenous medications for colitis. Dr. Felix describes this is the worst colitis he is ever seen. He is continuing IV medications as treatment for this. Today he is having no significant abdominal pain and no nausea or vomiting. Stage IIIB adenocarcinoma of the lung: CT scan of the chest, abdomen and pelvis done yesterday. He has a smaller irregular mass in the inferior right upper lobe measuring 40 x 16 x 9 mm compared to previous CT scan done April 07, 2017, when the same mass measured 46 x 40 x 31 mm. He has declined further chemotherapy for the time being because he cannot afford it. His thoracic aorta demonstrates ectasia. There was no evidence of metastatic disease to the liver or other abdominal organs including pancreas, adrenal glands and kidneys. We will continue to watch his lung cancer without treatment. I am not certain at this point that he is willing to take further chemotherapy for his lung cancer. History of colon cancer: There is no evidence of recurrence of his colon cancer. Emaciation, cachexia and malnutrition: His serum albumin is 2.0 which reflects the fact that the patient is malnourished and has emaciation and cachexia. COPD: Stable Anemia:Hemoglobin today is down to 10.3. Serum creatinine 0.7 White cell count 9600 Platelet count 431,000 Dr. Felix has already prescribed prednisone tapering dose as well as Augmentin. Exam - Constitutional Vitals: Period Temp Pulse Resp BP Sys/Rayo Pulse Ox Last 24 Hr 97.4 F-97.9 F 72-86 16-20 95-153/56-114 97-100 Results - Labs CBC & BMP: 07/27/17 02:37 07/27/17 02:37 Quality Measures - VTE Contraindication to Pharmacological VTE Prophylaxis: High Risk of Bleeding Specialty Discharge - Follow Up or Referrals Follow up with: Jayce Felix MD [Physician] - (Follow up with Dr. Felix in 6 weeks on discharge.)
[2017-07-27] MEDS: FLUTICASONE/SALMETEROL 500-50 DISKUS 14 DOSE INH SCH (10:08)
[2017-07-27] MEDS: VIT B12 SL SCH (10:12)
--- NOTE | 2017-07-27 11:22 | Discharge Summary ---
Specialty Discharge - Follow Up or Referrals Follow up with: Jayce Felix MD [Physician] - (Follow up with Dr. Felix in 6 weeks on discharge.) Discharge Plan - Discharge Data Disposition: Disch To Home/Self Care Condition at Discharge: Guarded Discharge Diet: advance to your usual diet Activity: resume usual activities as tolerated Hygiene: no restrictions Weight Bearing at Discharge: weight bear as tolerated Driving: other Contact your physician if you experience:: fever over 101, Difficulty voiding, Redness or swelling, Nausea/Vomiting, Shortness of breath, Bleeding, pain uncontrolled by pain medications - Discharge Medications Continue Theophylline ER Tab 200 mg PO BID W/MEALS Ipratropium/Albuterol Inhaler [Combivent Respimat Inhaler] 1 puff INH QID Aspirin [Ecotrin] 81 mg PO QAM Fluticasone/Salmeterol 500-50 [Advair 500-50] 1 puff INH BID Albuterol Inhaler [Proventil Inhaler] 2 puff INH Q4H PRN PRN Reason: Shortness Of Breath/Wheezing Cyanocobalamin (Vitamin B-12) [Vitamin B-12] 5,000 mcg SL DAILY Potassium Chloride Cap/Tab [K Dur] 20 meq PO BID #14 tablet Discontinued Multivitamin [Multivitamins] 1 each PO DAILY - Follow Up or Referral Follow Up: Jayce Felix MD [Physician] - (Follow up with Dr. Felix in 6 weeks on discharge.) - Forms/Instructions Additional Discharge Instructions: Dr. Felix wrote prescriptions for Augmentin and prednisone, both of which are relatively inexpensive. Go ahead and start on them today. Call my office and change her next appointment to about 4 weeks from now with chest x-ray, CBC, CMP and LDH. Exam - Constitutional Vitals: Period Temp Pulse Resp BP Sys/Rayo Pulse Ox Last 24 Hr 97.4 F-97.9 F 72-86 16-20 95-153/56-114 97-100 Discharge Results Procedures and tests throughout hospitalization: Pending Orders 07/22/17 13:05 Cryptosporidium Antigen Stool Routine Fecal Leukocytes Routine Giardia Antigen, Feces Routine 07/26/17 01:54 HIV-1/-2 Ab Differentiation,S Routine 07/28/17 04:00 CBC [Comp Blood Count Auto Diff] IN AM CMP [Comprehensive Metabolic Panel] IN AM Labs on day of discharge: Labs from last 24 hours 07/27/17 07/27/17 07/26/17 02:37 02:37 01:54 WBC 9.6 RBC 3.19 L Hgb 10.3 L Hct 31.3 L MCV 98.1 MCH 32 MCHC 32.9 RDW 13.6 Plt Count 431 H MPV 8.7 L Neut % (Auto) 67.9 Lymph % (Auto) 22.0 [place] % (Auto) 6.2 Eos % (Auto) 0.0 Baso % (Auto) 0.2 Neut # (Auto) 6.5 Lymph # (Auto) 2.1 [place] # (Auto) 0.6 Eos # (Auto) 0.0 Baso # (Auto) 0.0 Immature Gran % 3.7 Nucleated RBC % 0.0 Immature Gran # 0.36 Nucleated RBCs # 0.00 Immature Plt Fraction 0.0 Sodium 140 Potassium 4.7 Chloride 105 Carbon Dioxide 28 Anion Gap 11.7 BUN 5 L Creatinine 0.70 GFR Calculation 91 BUN/Creatinine Ratio 7.00 Glucose 127 H Calculated Osmolality 277.4 Calcium 8.0 L Iron TIBC % Saturation Ferritin Total Bilirubin 0.50 AST 28 ALT 39 Alkaline Phosphatase 90 Total Protein 4.9 L Albumin 2.0 L Globulin 2.9 Albumin/Globulin Ratio 0.6 L Vitamin B12 > 2000 H Folate 10.1 07/26/17 01:54 WBC RBC Hgb Hct MCV MCH MCHC RDW Plt Count MPV Neut % (Auto) Lymph % (Auto) [place] % (Auto) Eos % (Auto) Baso % (Auto) Neut # (Auto) Lymph # (Auto) [place] # (Auto) Eos # (Auto) Baso # (Auto) Immature Gran % Nucleated RBC % Immature Gran # Nucleated RBCs # Immature Plt Fraction Sodium Potassium Chloride Carbon Dioxide Anion Gap BUN Creatinine GFR Calculation BUN/Creatinine Ratio Glucose Calculated Osmolality Calcium Iron 50 L TIBC 140 L % Saturation 35.7 Ferritin 396.0 H Total Bilirubin AST ALT Alkaline Phosphatase Total Protein Albumin Globulin Albumin/Globulin Ratio Vitamin B12 Folate DS: Provider Date of admission: 07/23/17 13:38 Mr. Lopez was admitted with abdominal pain and it turned out to be colitis. Colitis: He is on treatment now under the supervision of Dr. Kruse. His abdominal bloating and pain have improved since yesterday. Continuing intravenous medications for colitis. Dr. Felix describes this is the worst colitis he is ever seen. He is continuing IV medications as treatment for this. Today he is having no significant abdominal pain and no nausea or vomiting. Bowel sounds are normal. Stage IIIB adenocarcinoma of the lung: CT scan of the chest, abdomen and pelvis done yesterday. He has a smaller irregular mass in the inferior right upper lobe measuring 40 x 16 x 9 mm compared to previous CT scan done April 07, 2017, when the same mass measured 46 x 40 x 31 mm. He has declined further chemotherapy for the time being because he cannot afford it. His thoracic aorta demonstrates ectasia. There was no evidence of metastatic disease to the liver or other abdominal organs including pancreas, adrenal glands and kidneys. We will continue to watch his lung cancer without treatment. I am not certain at this point that he is willing to take further chemotherapy for his lung cancer. History of colon cancer: There is no evidence of recurrence of his colon cancer. Emaciation, cachexia and malnutrition: His serum albumin is 2.0 which reflects the fact that the patient is malnourished and has emaciation and cachexia. COPD: Stable Anemia:Hemoglobin today is down to 10.3. Serum creatinine 0.7 White cell count 9600 Platelet count 431,000 Dr. Felix has already prescribed prednisone tapering dose starting at 60 mg as well as Augmentin 875 mg twice daily. He has an appointment to see me later this week and I am instructing him to call so that we can change that. Primary care physician: Curtis Ramirez MD Attending physician on admission: Josue Joyner MD Consults: 07/22/17 00:38 Consult to Dietitian [CONS] Routine Reason for Dietitian: Dietary Consult Consult to Pastoral Services [CONS] Routine Comment: Pastoral Screen: Request [employer] Lead Visit 07/22/17 08:44 Consult to Physician [CONS] Routine Comment: known to you--nausea,vomiting,diarrhea Consulting Provider: Jayce Felix Consulting Provider Notified: Yes When should Consulting Provider be notified: Now Consult to Specialist Group: Gastroenterology When should Consulting Provider be notified: Now Person Notified: MIRNA Date Notified: 07/22/17 Time Notified: 09:02 Discharging clinician: Josue Joyner MD
[2017-07-27 14:20] VITALS: BP 121/72
== END 2017-07-27 14:00 | disposition home or self-care (01) | DRG 385 ==
LOC: N.ED 17:39 → N.EDINP 17:39 → N.4E 07-22 00:12
PROVIDERS: ADMIT Specialist; ATTEND Specialist
PROC: COLONBX (2017-07-23 07:05)

== ENCOUNTER 2019-01-17 18:26 | Inpatient (IN) ==
[2019-01-17] MEDS ORDERED: AZITHROMYCIN INJ 500 MG in SODIUM CHLORIDE 0.9% 250 ML IV STA (19:41)
[2019-01-17] MEDS ORDERED: cefTRIAXone 1,000 MG in SODIUM CHLORIDE 0.9% 100 ML IV STA (19:41)
[2019-01-17] MEDS ORDERED: ALBUTEROL/IPRATROPIUM 3 ML NEB RESP TX STA (19:41)
[2019-01-17] MEDS ORDERED: methylPREDNISolone SOD SUC 125 MG/2 ML VIAL IV STA (19:43)
[2019-01-17 19:54] LABS: Basophils % 0.1 % (0.0-0.8); Hematocrit 37.5 VOL% (42.0-52.0); Hemoglobin 11.2 GM/DL (14.0-18.0); Immature Granulocytes % 0.7 %; Immature Granulocytes Absolute 0.11 #; Lymphocytes # 1.4 10*3/uL (1.4-4.0); Lymphocytes % 8.5 % (21.2-54.2); Mean Corpuscular HGB Conc 29.9 GM/DL (32-36); Mean Corpuscular Hemoglobin 24 PG (27-34); Mean Corpuscular Volume 81.3 FL (87-102); Mean Platelet Volume 9.3 FL (9.6-12.0); Monocytes # 0.8 10*3/uL (0.11-0.8); Monocytes % 4.6 % (1.7-12.7); Neutrophils # 14.2 10*3/uL (1.4-7.4); Neutrophils % 86.1 % (38.7-73.9); Platelet Count 430 T/CUMM (130-400); Red Blood Count 4.61 MC/CUMM (3.8-5.5); Red Cell Distribution Width 15.9 % (9.3-17.3); White Blood Count 16.4 T/CUMM (4-12)
[2019-01-17 20:03] LABS: Albumin 3.1 G/DL (3.4-5.0); Bilirubin,Total 0.8 MG/DL (0.2-1.0); Calcium 9.3 MG/DL (8.5-10.1); Osmolality,Calculated 267.5 MOS/KG (273-304); Total Protein 7.4 G/DL (6.4-8.3)
[2019-01-17] MEDS ORDERED: SODIUM CHLORIDE 0.9% 2,000 ML IV STA (21:36)
[2019-01-17] MEDS ORDERED: CEFEPIME 2,000 MG in SODIUM CHLORIDE 0.9% 100 ML IV STA (21:53)
[2019-01-17] MEDS ORDERED: VANCOMYCIN INJ 1,000 MG in SODIUM CHLORIDE 0.9% 250 ML IV STA (21:54)
[2019-01-18] MEDS ORDERED: ALBUTEROL 2.5 MG/3 ML NEB RESP TX PRN (00:22)
[2019-01-18] MEDS ORDERED: DOCUSATE SODIUM 100 MG CAPSULE PO PRN (00:24)
[2019-01-18] MEDS ORDERED: ONDANSETRON 4 MG/2 ML VIAL IV PRN (00:24)
[2019-01-18] MEDS ORDERED: SODIUM CHLORIDE 0.9% 1,000 ML IV SCH (00:30)
[2019-01-18] MEDS: GABAPENTIN 100 MG CAPSULE PO SCH ×2 (00:55→21:08)
[2019-01-18] MEDS: ALBUTEROL/IPRATROPIUM 3 ML NEB RESP TX SCH ×4 (04:34→19:34)
[2019-01-18 05:17] LABS: Basophils % 0.1 % (0.0-0.8); Hemoglobin 8.8 GM/DL (14.0-18.0); Immature Granulocytes % 0.8 %; Immature Granulocytes Absolute 0.07 #; Lymphocytes # 1.4 10*3/uL (1.4-4.0); Lymphocytes % 15.1 % (21.2-54.2); Mean Corpuscular HGB Conc 30.3 GM/DL (32-36); Mean Corpuscular Hemoglobin 24 PG (27-34); Mean Corpuscular Volume 80.6 FL (87-102); Mean Platelet Volume 9.5 FL (9.6-12.0); Monocytes # 0.1 10*3/uL (0.11-0.8); Monocytes % 0.9 % (1.7-12.7); Neutrophils # 7.6 10*3/uL (1.4-7.4); Neutrophils % 83.1 % (38.7-73.9); Platelet Count 354 T/CUMM (130-400); Red Cell Distribution Width 15.7 % (9.3-17.3); White Blood Count 9.1 T/CUMM (4-12)
[2019-01-18 05:25] LABS: Calcium 8.1 MG/DL (8.5-10.1); Osmolality,Calculated 273.1 MOS/KG (273-304); Potassium 3.7 MMOL/L (3.5-5.1)
[2019-01-18] MEDS ORDERED: B3 PO SCH (09:00)
[2019-01-18] MEDS ORDERED: CHOLN PO SCH (09:00)
[2019-01-18] MEDS ORDERED: B1 PO SCH (09:00)
[2019-01-18] MEDS ORDERED: B2 PO SCH (09:00)
[2019-01-18] MEDS ORDERED: IRON PO SCH (09:00)
[2019-01-18] MEDS ORDERED: IPRATROPIUM/ALBUTEROL INHALER INH SCH (09:00)
[2019-01-18] MEDS ORDERED: B6 PO SCH (09:00)
[2019-01-18] MEDS ORDERED: METH PO SCH (09:00)
[2019-01-18] MEDS ORDERED: B5 PO SCH (09:00)
[2019-01-18] MEDS: DEXT 5% NACL 0.45% KCL 20 MEQ 20 MEQ/1,000 ML BAG IV SCH ×2 (10:08→21:07)
[2019-01-18] MEDS: PANTOPRAZOLE 40 MG TABLET PO SCH (10:13)
[2019-01-18] MEDS: THEOPHYLLINE ER (24 HR) 200 MG CAPSULE PO SCH ×2 (10:13→18:05)
[2019-01-18] MEDS: MAGNESIUM OXIDE 400 MG TABLET PO SCH (10:13)
[2019-01-18] MEDS: CHOLECALCIFEROL 5,000 UNIT TABLET PO SCH (10:13)
[2019-01-18] MEDS: ASCORBIC ACID 500 MG TABLET PO SCH ×2 (10:13→21:08)
[2019-01-18] MEDS: FLUTICASONE/SALMETEROL 500-50 DISKUS 14 DOSE INH SCH ×2 (10:15→21:08)
[2019-01-18] MEDS: ENOXAPARIN 40 MG/0.4 ML SYRINGE SUBCUT SCH (10:16)
[2019-01-18] MEDS ORDERED: NOREPINEPHRINE 8 MG in SODIUM CHLORIDE 0.9% 242 ML IV PRN (14:37)
[2019-01-18] MEDS: MEROPENEM 1,000 MG in SODIUM CHLORIDE 0.9% 100 ML IV SCH ×2 (15:49→23:37)
[2019-01-18] MEDS: VANCOMYCIN INJ 750 MG in SODIUM CHLORIDE 0.9% 250 ML IV SCH (17:55)
[2019-01-18] MEDS ORDERED: cefTRIAXone 1,000 MG in SODIUM CHLORIDE 0.9% 100 ML IV SCH (20:00)
[2019-01-18] MEDS ORDERED: AZITHROMYCIN INJ 500 MG in SODIUM CHLORIDE 0.9% 250 ML IV SCH (21:00)
[2019-01-19] MEDS: ALBUTEROL/IPRATROPIUM 3 ML NEB RESP TX SCH ×4 (00:30→19:40)
[2019-01-19 01:47] LABS: Apearance,Urine Clear (Clear); Bilirubin,Urine Negative (Negative); Blood, Urine Negative (Negative); Glucose,Urine (UA) Negative (Negative); Ketones,Urine Negative (Negative); Mucus,Urine Occasional /LPF (Occasional); Nitrite,Urine Negative (Negative); Protein,Urine Negative; RBC,Urine <1 /HPF (0-4); Urine Color Straw (Yellow); Urine Specific Gravity 1.009 (1.001-1.035); Urine Urobilinogen < 2.0 EU/DL (0.2-1.0); WBC,Urine <1 /HPF (0-6)
[2019-01-19] MEDS: ACETAMINOPHEN 325 MG TABLET PO PRN (01:59)
[2019-01-19] MEDS: VANCOMYCIN INJ 750 MG in SODIUM CHLORIDE 0.9% 250 ML IV SCH ×2 (04:28→18:14)
[2019-01-19 04:40] LABS: Basophils % 0.1 % (0.0-0.8); Eosinophils % 0.1 % (0.00-10.9); Hematocrit 30.2 VOL% (42.0-52.0); Hemoglobin 9.1 GM/DL (14.0-18.0); Immature Granulocytes % 0.5 %; Immature Granulocytes Absolute 0.06 #; Lymphocytes # 2.2 10*3/uL (1.4-4.0); Lymphocytes % 17.9 % (21.2-54.2); Mean Corpuscular HGB Conc 30.1 GM/DL (32-36); Mean Corpuscular Hemoglobin 24 PG (27-34); Mean Corpuscular Volume 80.3 FL (87-102); Mean Platelet Volume 9.2 FL (9.6-12.0); Monocytes # 1.3 10*3/uL (0.11-0.8); Monocytes % 10.2 % (1.7-12.7); Neutrophils # 8.9 10*3/uL (1.4-7.4); Neutrophils % 71.2 % (38.7-73.9); Platelet Count 382 T/CUMM (130-400); Red Blood Count 3.76 MC/CUMM (3.8-5.5); Red Cell Distribution Width 15.6 % (9.3-17.3); White Blood Count 12.4 T/CUMM (4-12)
[2019-01-19 04:54] LABS: Calcium 8.4 MG/DL (8.5-10.1); Potassium 2.7 MMOL/L (3.5-5.1)
[2019-01-19] MEDS: MEROPENEM 1,000 MG in SODIUM CHLORIDE 0.9% 100 ML IV SCH ×3 (05:59→23:38)
[2019-01-19] MEDS: POTASSIUM CHLORIDE RIDER 20 MEQ in PREMIX 1 EACH IV PRN ×2 (06:00→08:01)
[2019-01-19] MEDS: DEXT 5% NACL 0.45% KCL 20 MEQ 20 MEQ/1,000 ML BAG IV SCH ×3 (08:07→18:15)
[2019-01-19 08:21] LABS: Albumin 2.3 G/DL (3.4-5.0); Bilirubin,Total 0.7 MG/DL (0.2-1.0); Calcium 8.4 MG/DL (8.5-10.1); Osmolality,Calculated 276.5 MOS/KG (273-304); Potassium 3.5 MMOL/L (3.5-5.1); Total Protein 5.6 G/DL (6.4-8.3)
[2019-01-19] MEDS: MAGNESIUM OXIDE 400 MG TABLET PO SCH (09:37)
[2019-01-19] MEDS: ASCORBIC ACID 500 MG TABLET PO SCH ×2 (09:37→21:30)
[2019-01-19] MEDS: THEOPHYLLINE ER (24 HR) 200 MG CAPSULE PO SCH ×2 (09:38→18:14)
[2019-01-19] MEDS: ENOXAPARIN 40 MG/0.4 ML SYRINGE SUBCUT SCH (09:38)
[2019-01-19] MEDS: CHOLECALCIFEROL 5,000 UNIT TABLET PO SCH (09:38)
[2019-01-19] MEDS: methylPREDNISolone SOD SUC 125 MG/2 ML VIAL IV SCH ×2 (09:38→21:30)
[2019-01-19] MEDS: PANTOPRAZOLE 40 MG TABLET PO SCH (09:38)
[2019-01-19] MEDS: FLUTICASONE/SALMETEROL 500-50 DISKUS 14 DOSE INH SCH ×2 (09:44→21:30)
[2019-01-19] MEDS: POTASSIUM CHLORIDE RIDER 10 MEQ in PREMIX 1 EACH IV PRN (10:02)
[2019-01-19 10:23] LABS: % Iron Saturation 15.4 % (18-50)
[2019-01-19 10:58] LABS: Folate 19.3 NG/ML (5.4-24.0)
[2019-01-19] MEDS: GABAPENTIN 100 MG CAPSULE PO SCH (21:30)
[2019-01-20] MEDS: ALBUTEROL/IPRATROPIUM 3 ML NEB RESP TX SCH ×4 (00:27→19:40)
[2019-01-20] MEDS ORDERED: LORazepam 0.5 MG TABLET PO ONE (03:30)
[2019-01-20 04:03] LABS: Basophils % 0.1 % (0.0-0.8); Hematocrit 28.4 VOL% (42.0-52.0); Hemoglobin 8.6 GM/DL (14.0-18.0); Immature Granulocytes % 0.4 %; Immature Granulocytes Absolute 0.05 #; Lymphocytes # 1.9 10*3/uL (1.4-4.0); Lymphocytes % 15.5 % (21.2-54.2); Mean Corpuscular HGB Conc 30.3 GM/DL (32-36); Mean Corpuscular Hemoglobin 24 PG (27-34); Mean Corpuscular Volume 80.2 FL (87-102); Monocytes % 8.1 % (1.7-12.7); Neutrophils # 9.3 10*3/uL (1.4-7.4); Neutrophils % 75.9 % (38.7-73.9); Platelet Count 349 T/CUMM (130-400); Red Blood Count 3.54 MC/CUMM (3.8-5.5); Red Cell Distribution Width 15.2 % (9.3-17.3); White Blood Count 12.2 T/CUMM (4-12)
[2019-01-20] MEDS: DEXT 5% NACL 0.45% KCL 20 MEQ 20 MEQ/1,000 ML BAG IV SCH ×5 (04:11→22:51)
[2019-01-20 04:33] LABS: Albumin 2.5 G/DL (3.4-5.0); Bilirubin,Total 0.4 MG/DL (0.2-1.0); Calcium 8.6 MG/DL (8.5-10.1); Osmolality,Calculated 267.2 MOS/KG (273-304); Potassium 3.3 MMOL/L (3.5-5.1); Total Protein 5.7 G/DL (6.4-8.3)
[2019-01-20] MEDS: POTASSIUM CHLORIDE RIDER 20 MEQ in PREMIX 1 EACH IV PRN ×2 (05:53→07:57)
[2019-01-20] MEDS: VANCOMYCIN INJ 750 MG in SODIUM CHLORIDE 0.9% 250 ML IV SCH ×2 (05:53→17:13)
[2019-01-20] MEDS: MEROPENEM 1,000 MG in SODIUM CHLORIDE 0.9% 100 ML IV SCH ×2 (06:44→14:46)
[2019-01-20] MEDS: methylPREDNISolone SOD SUC 125 MG/2 ML VIAL IV SCH ×2 (08:26→21:41)
[2019-01-20] MEDS: PANTOPRAZOLE 40 MG TABLET PO SCH (08:27)
[2019-01-20] MEDS: FLUTICASONE/SALMETEROL 500-50 DISKUS 14 DOSE INH SCH ×2 (08:27→21:42)
[2019-01-20] MEDS: CHOLECALCIFEROL 5,000 UNIT TABLET PO SCH (08:27)
[2019-01-20] MEDS: THEOPHYLLINE ER (24 HR) 200 MG CAPSULE PO SCH ×2 (08:27→17:13)
[2019-01-20] MEDS: MAGNESIUM OXIDE 400 MG TABLET PO SCH (08:27)
[2019-01-20] MEDS: ASCORBIC ACID 500 MG TABLET PO SCH ×2 (08:27→21:42)
[2019-01-20] MEDS: ENOXAPARIN 40 MG/0.4 ML SYRINGE SUBCUT SCH (08:27)
[2019-01-20] MEDS: GABAPENTIN 100 MG CAPSULE PO SCH (21:42)
[2019-01-21] MEDS: MEROPENEM 1,000 MG in SODIUM CHLORIDE 0.9% 100 ML IV SCH ×4 (00:14→22:56)
[2019-01-21] MEDS: ACETAMINOPHEN 325 MG TABLET PO PRN (00:20)
[2019-01-21] MEDS: ALBUTEROL/IPRATROPIUM 3 ML NEB RESP TX SCH ×4 (02:07→20:02)
[2019-01-21] MEDS: VANCOMYCIN INJ 1,000 MG in SODIUM CHLORIDE 0.9% 250 ML IV SCH ×3 (04:55→20:47)
[2019-01-21 06:00] LABS: Hematocrit 29.8 VOL% (42.0-52.0); Hemoglobin 9.1 GM/DL (14.0-18.0); Immature Granulocytes % 0.7 %; Immature Granulocytes Absolute 0.05 #; Lymphocytes # 0.8 10*3/uL (1.4-4.0); Lymphocytes % 10.4 % (21.2-54.2); Mean Corpuscular HGB Conc 30.5 GM/DL (32-36); Mean Corpuscular Hemoglobin 25 PG (27-34); Mean Corpuscular Volume 80.3 FL (87-102); Mean Platelet Volume 9.1 FL (9.6-12.0); Monocytes # 0.2 10*3/uL (0.11-0.8); Monocytes % 2.1 % (1.7-12.7); Neutrophils # 6.7 10*3/uL (1.4-7.4); Neutrophils % 86.8 % (38.7-73.9); Platelet Count 376 T/CUMM (130-400); Red Blood Count 3.71 MC/CUMM (3.8-5.5); Red Cell Distribution Width 15.5 % (9.3-17.3); White Blood Count 7.7 T/CUMM (4-12)
[2019-01-21 06:22] LABS: Albumin 2.6 G/DL (3.4-5.0); Bilirubin,Total 0.6 MG/DL (0.2-1.0); Calcium 8.7 MG/DL (8.5-10.1); Osmolality,Calculated 272.8 MOS/KG (273-304); Potassium 3.7 MMOL/L (3.5-5.1); Total Protein 6.1 G/DL (6.4-8.3)
[2019-01-21] MEDS ORDERED: HEPARIN LOCK FLUSH 500 UNIT/5 ML SYRINGE IV ONE (12:52)
[2019-01-21] MEDS: DEXT 5% NACL 0.45% KCL 20 MEQ 20 MEQ/1,000 ML BAG IV SCH ×3 (13:02→23:44)
[2019-01-21] MEDS: methylPREDNISolone SOD SUC 125 MG/2 ML VIAL IV SCH ×2 (13:04→20:41)
[2019-01-21] MEDS: ENOXAPARIN 40 MG/0.4 ML SYRINGE SUBCUT SCH (13:05)
[2019-01-21] MEDS: PANTOPRAZOLE 40 MG TABLET PO SCH (13:07)
[2019-01-21] MEDS: MAGNESIUM OXIDE 400 MG TABLET PO SCH (13:07)
[2019-01-21] MEDS: ASCORBIC ACID 500 MG TABLET PO SCH ×2 (13:07→20:40)
[2019-01-21] MEDS: CHOLECALCIFEROL 5,000 UNIT TABLET PO SCH (13:07)
[2019-01-21] MEDS: THEOPHYLLINE ER (24 HR) 200 MG CAPSULE PO SCH ×2 (13:07→17:40)
[2019-01-21] MEDS: FLUTICASONE/SALMETEROL 500-50 DISKUS 14 DOSE INH SCH ×2 (13:08→20:39)
[2019-01-21] MEDS ORDERED: KETOROLAC 15 MG/1 ML VIAL IV PRN (14:07)
[2019-01-21] MEDS ORDERED: chlorproMAZINE INJ 50 MG in SODIUM CHLORIDE 0.9% 100 ML IV PRN (19:09)
[2019-01-21] MEDS ORDERED: MAGNESIUM HYDROXIDE SUSP 30 ML UDCUP PO PRN (19:09)
[2019-01-21] MEDS ORDERED: guaiFENesin 200 MG/10 ML UDCUP PO PRN (19:09)
[2019-01-21] MEDS ORDERED: traMADol 50 MG TABLET PO PRN (19:09)
[2019-01-21] MEDS ORDERED: ACETAMINOPHEN 325 MG TABLET PO PRN (19:09)
[2019-01-21] MEDS ORDERED: ALUMINUM/MAGNES/SIMETH MAX STR 30 ML UDCUP PO PRN (19:09)
[2019-01-21] MEDS ORDERED: MYLANTA/LIDO VISC 2:1 300 ML BOTTLE SWISH/SPIT PRN (19:09)
[2019-01-21] MEDS ORDERED: LOPERAMIDE 2 MG CAPSULE PO PRN ×2 (19:09)
[2019-01-21] MEDS ORDERED: diphenhydrAMINE CAP 25 MG CAPSULE PO PRN (19:09)
[2019-01-21] MEDS ORDERED: ONDANSETRON 4 MG/2 ML VIAL IV PRN (19:09)
[2019-01-21] MEDS ORDERED: LACTULOSE 20 GM/30 ML UDCUP PO PRN (19:09)
[2019-01-21] MEDS ORDERED: ALPRAZolam 0.25 MG TABLET PO PRN (19:09)
[2019-01-21] MEDS ORDERED: PROMETHAZINE INJ 25 MG in SODIUM CHLORIDE 0.9% 50 ML IV PRN (19:09)
[2019-01-21] MEDS ORDERED: chlorproMAZINE 25 MG TABLET PO PRN (19:09)
[2019-01-21] MEDS ORDERED: chlorproMAZINE INJ 25 MG in SODIUM CHLORIDE 0.9% 100 ML IV PRN (19:09)
[2019-01-21] MEDS ORDERED: MYLANTA/LIDO VISC 2:1 300 ML BOTTLE SWISH/SWAL PRN (19:09)
[2019-01-21] MEDS ORDERED: BENZTROPINE 2 MG/2 ML AMP IV PRN (19:09)
[2019-01-21] MEDS: GABAPENTIN 100 MG CAPSULE PO SCH (20:40)
[2019-01-21] MEDS: TEMAZEPAM 7.5 MG CAPSULE PO PRN (23:01)
[2019-01-22] MEDS: ALBUTEROL/IPRATROPIUM 3 ML NEB RESP TX SCH ×4 (01:07→20:20)
[2019-01-22] MEDS ORDERED: HYDROcod/ACETAMIN 7.5-325 MG/15 ML UDCUP PO PRN (03:00)
[2019-01-22 04:44] LABS: Basophils % 0.1 % (0.0-0.8); Hematocrit 29.1 VOL% (42.0-52.0); Hemoglobin 8.7 GM/DL (14.0-18.0); Immature Granulocytes % 0.4 %; Immature Granulocytes Absolute 0.03 #; Lymphocytes # 0.7 10*3/uL (1.4-4.0); Lymphocytes % 9.1 % (21.2-54.2); Mean Corpuscular HGB Conc 29.9 GM/DL (32-36); Mean Corpuscular Hemoglobin 24 PG (27-34); Mean Corpuscular Volume 80.4 FL (87-102); Mean Platelet Volume 9.1 FL (9.6-12.0); Monocytes # 0.2 10*3/uL (0.11-0.8); Monocytes % 2.2 % (1.7-12.7); Neutrophils # 6.8 10*3/uL (1.4-7.4); Neutrophils % 88.2 % (38.7-73.9); Platelet Count 399 T/CUMM (130-400); Red Blood Count 3.62 MC/CUMM (3.8-5.5); Red Cell Distribution Width 15.6 % (9.3-17.3); White Blood Count 7.7 T/CUMM (4-12)
[2019-01-22 05:06] LABS: Albumin 2.6 G/DL (3.4-5.0); Bilirubin,Total 0.8 MG/DL (0.2-1.0); Calcium 8.5 MG/DL (8.5-10.1); Potassium 3.4 MMOL/L (3.5-5.1)
[2019-01-22] MEDS: POTASSIUM CHLORIDE RIDER 20 MEQ in PREMIX 1 EACH IV PRN ×2 (05:45→18:07)
[2019-01-22] MEDS: FLUTICASONE/SALMETEROL 500-50 DISKUS 14 DOSE INH SCH ×2 (09:10→21:52)
[2019-01-22] MEDS: DEXT 5% NACL 0.45% KCL 20 MEQ 20 MEQ/1,000 ML BAG IV SCH ×3 (09:13→12:10)
[2019-01-22] MEDS: VANCOMYCIN INJ 1,000 MG in SODIUM CHLORIDE 0.9% 250 ML IV SCH (10:08)
[2019-01-22] MEDS: MAGNESIUM OXIDE 400 MG TABLET PO SCH (12:06)
[2019-01-22] MEDS: THEOPHYLLINE ER (24 HR) 200 MG CAPSULE PO SCH ×2 (12:06→18:03)
[2019-01-22] MEDS: PANTOPRAZOLE 40 MG TABLET PO SCH (12:07)
[2019-01-22] MEDS: CLOTRIMAZOLE 10 MG TROCHE PO SCH ×4 (12:07→21:52)
[2019-01-22] MEDS: FLUCONAZOLE 100 MG TABLET PO SCH (12:07)
[2019-01-22] MEDS: ASCORBIC ACID 500 MG TABLET PO SCH ×2 (12:07→21:52)
[2019-01-22] MEDS: CHOLECALCIFEROL 5,000 UNIT TABLET PO SCH (12:07)
[2019-01-22] MEDS: methylPREDNISolone SOD SUC 125 MG/2 ML VIAL IV SCH ×2 (12:08→21:55)
[2019-01-22] MEDS: MEROPENEM 1,000 MG in SODIUM CHLORIDE 0.9% 100 ML IV SCH (12:09)
[2019-01-22] MEDS: POTASSIUM CHLORIDE RIDER 10 MEQ in PREMIX 1 EACH IV PRN (12:11)
[2019-01-22] MEDS ORDERED: LEVOFLOXACIN INJ 750 MG in PREMIX 1 EACH IV SCH (13:00)
[2019-01-22] MEDS: ENOXAPARIN 40 MG/0.4 ML SYRINGE SUBCUT SCH (18:04)
[2019-01-22] MEDS: LEVOFLOXACIN INJ 750 MG in PREMIX 1 EACH IV SCH (18:11)
[2019-01-22] MEDS: TEMAZEPAM 7.5 MG CAPSULE PO PRN (21:52)
[2019-01-22] MEDS: GABAPENTIN 100 MG CAPSULE PO SCH (21:52)
[2019-01-23] MEDS: ALBUTEROL/IPRATROPIUM 3 ML NEB RESP TX SCH ×4 (00:55→19:04)
[2019-01-23 04:34] LABS: Hematocrit 29.4 VOL% (42.0-52.0); Hemoglobin 8.9 GM/DL (14.0-18.0); Immature Granulocytes % 0.5 %; Immature Granulocytes Absolute 0.04 #; Lymphocytes # 0.4 10*3/uL (1.4-4.0); Lymphocytes % 5.5 % (21.2-54.2); Mean Corpuscular HGB Conc 30.3 GM/DL (32-36); Mean Corpuscular Hemoglobin 24 PG (27-34); Mean Corpuscular Volume 79.7 FL (87-102); Mean Platelet Volume 9.1 FL (9.6-12.0); Monocytes # 0.2 10*3/uL (0.11-0.8); Neutrophils # 7.2 10*3/uL (1.4-7.4); Platelet Count 429 T/CUMM (130-400); Red Blood Count 3.69 MC/CUMM (3.8-5.5); Red Cell Distribution Width 15.1 % (9.3-17.3); White Blood Count 7.8 T/CUMM (4-12)
[2019-01-23 04:59] LABS: Calcium 8.6 MG/DL (8.5-10.1); Osmolality,Calculated 266.4 MOS/KG (273-304); Potassium 3.7 MMOL/L (3.5-5.1)
[2019-01-23 05:03] LABS: Albumin 2.8 G/DL (3.4-5.0); Bilirubin,Total 0.9 MG/DL (0.2-1.0); Calcium 8.6 MG/DL (8.5-10.1); Osmolality,Calculated 268.2 MOS/KG (273-304); Potassium 3.7 MMOL/L (3.5-5.1); Total Protein 6.1 G/DL (6.4-8.3)
[2019-01-23 05:57] LABS: Lymphocytes 4 % (20-55); Segmented Neutrophils 95 % (50-85); Total Cells Counted 100
[2019-01-23 05:58] LABS: Platelet Estimate Increased
[2019-01-23 05:59] LABS: Hypochromasia 1+
[2019-01-23] MEDS: DEXT 5% NACL 0.45% KCL 20 MEQ 20 MEQ/1,000 ML BAG IV SCH (11:28)
[2019-01-23] MEDS: methylPREDNISolone SOD SUC 125 MG/2 ML VIAL IV SCH ×2 (11:29→20:58)
[2019-01-23] MEDS: CLOTRIMAZOLE 10 MG TROCHE PO SCH ×4 (11:30→21:02)
[2019-01-23] MEDS: ASCORBIC ACID 500 MG TABLET PO SCH ×2 (11:30→21:02)
[2019-01-23] MEDS: PANTOPRAZOLE 40 MG TABLET PO SCH (11:31)
[2019-01-23] MEDS: ENOXAPARIN 40 MG/0.4 ML SYRINGE SUBCUT SCH (11:31)
[2019-01-23] MEDS: MAGNESIUM OXIDE 400 MG TABLET PO SCH (11:31)
[2019-01-23] MEDS: FLUCONAZOLE 100 MG TABLET PO SCH (11:31)
[2019-01-23] MEDS: THEOPHYLLINE ER (24 HR) 200 MG CAPSULE PO SCH ×2 (11:31→18:17)
[2019-01-23] MEDS: FLUTICASONE/SALMETEROL 500-50 DISKUS 14 DOSE INH SCH ×2 (11:32→21:01)
[2019-01-23] MEDS ORDERED: GABAPENTIN 100 MG CAPSULE PO SCH (11:36)
[2019-01-23] MEDS: CHOLECALCIFEROL 5,000 UNIT TABLET PO SCH (11:42)
[2019-01-23] MEDS: LEVOFLOXACIN INJ 750 MG in PREMIX 1 EACH IV SCH (18:16)
[2019-01-23] MEDS: TEMAZEPAM 7.5 MG CAPSULE PO PRN (21:51)
[2019-01-24] MEDS: ALBUTEROL/IPRATROPIUM 3 ML NEB RESP TX SCH ×2 (01:44→07:08)
[2019-01-24 05:10] LABS: Basophils % 0.2 % (0.0-0.8); Hematocrit 31.1 VOL% (42.0-52.0); Hemoglobin 9.6 GM/DL (14.0-18.0); Immature Granulocytes % 0.5 %; Immature Granulocytes Absolute 0.03 #; Lymphocytes # 0.5 10*3/uL (1.4-4.0); Lymphocytes % 6.8 % (21.2-54.2); Mean Corpuscular HGB Conc 30.9 GM/DL (32-36); Mean Corpuscular Hemoglobin 25 PG (27-34); Mean Corpuscular Volume 79.9 FL (87-102); Mean Platelet Volume 9.1 FL (9.6-12.0); Monocytes # 0.2 10*3/uL (0.11-0.8); Monocytes % 2.3 % (1.7-12.7); Neutrophils % 90.2 % (38.7-73.9); Platelet Count 436 T/CUMM (130-400); Red Blood Count 3.89 MC/CUMM (3.8-5.5); Red Cell Distribution Width 15.3 % (9.3-17.3); White Blood Count 6.6 T/CUMM (4-12)
[2019-01-24 05:47] LABS: Bilirubin,Total 0.8 MG/DL (0.2-1.0); Calcium 9.1 MG/DL (8.5-10.1); Osmolality,Calculated 273.1 MOS/KG (273-304); Potassium 3.4 MMOL/L (3.5-5.1); Total Protein 6.5 G/DL (6.4-8.3)
[2019-01-24] MEDS: ASCORBIC ACID 500 MG TABLET PO SCH (09:07)
[2019-01-24] MEDS: CLOTRIMAZOLE 10 MG TROCHE PO SCH ×2 (09:07→13:17)
[2019-01-24] MEDS: FLUCONAZOLE 100 MG TABLET PO SCH (09:07)
[2019-01-24] MEDS: PANTOPRAZOLE 40 MG TABLET PO SCH (09:07)
[2019-01-24] MEDS: THEOPHYLLINE ER (24 HR) 200 MG CAPSULE PO SCH (09:07)
[2019-01-24] MEDS: MAGNESIUM OXIDE 400 MG TABLET PO SCH (09:07)
[2019-01-24] MEDS: CHOLECALCIFEROL 5,000 UNIT TABLET PO SCH (09:07)
[2019-01-24] MEDS: methylPREDNISolone SOD SUC 125 MG/2 ML VIAL IV SCH (09:08)
[2019-01-24] MEDS: ENOXAPARIN 40 MG/0.4 ML SYRINGE SUBCUT SCH (09:08)
[2019-01-24] MEDS: FLUTICASONE/SALMETEROL 500-50 DISKUS 14 DOSE INH SCH (09:12)
[2019-01-24] MEDS ORDERED: POTASSIUM CHLORIDE 20 MEQ TABLET PO ONE (09:50)
[2019-01-24] MEDS ORDERED: HEPARIN LOCK FLUSH 500 UNIT/5 ML SYRINGE IV PRN (11:21)
[2019-01-24 12:37] VITALS: BP 90/56
== END 2019-01-24 14:10 | disposition home or self-care (01) | DRG 871 ==
LOC: N.ED 18:26 → N.EDINP 23:22 → SUATTDRO 23:22 → N.4E 23:48 → N.ICU 01-18 15:28 → N.4E 01-20 23:31
PROVIDERS: ADMIT Internal Medicine; ATTEND Internal Medicine

== ENCOUNTER 2019-03-07 17:07 | Inpatient (IN) ==
[2019-03-07 19:43] LABS: Basophils % 0.1 % (0.0-0.8); Hematocrit 35.9 VOL% (42.0-52.0); Hemoglobin 10.9 GM/DL (14.0-18.0); Immature Granulocytes % 0.7 %; Immature Granulocytes Absolute 0.16 #; Lymphocytes # 1.2 10*3/uL (1.4-4.0); Lymphocytes % 5.8 % (21.2-54.2); Mean Corpuscular HGB Conc 30.4 GM/DL (32-36); Mean Corpuscular Hemoglobin 24 PG (27-34); Mean Corpuscular Volume 79.8 FL (87-102); Mean Platelet Volume 8.5 FL (9.6-12.0); Monocytes # 0.8 10*3/uL (0.11-0.8); Monocytes % 3.9 % (1.7-12.7); Neutrophils # 19.1 10*3/uL (1.4-7.4); Neutrophils % 89.5 % (38.7-73.9); Platelet Count 645 T/CUMM (130-400); Red Cell Distribution Width 16.2 % (9.3-17.3); White Blood Count 21.4 T/CUMM (4-12)
[2019-03-07 19:58] LABS: Bilirubin,Total 0.6 MG/DL (0.2-1.0); Calcium 8.5 MG/DL (8.5-10.1); Osmolality,Calculated 272.1 MOS/KG (273-304); Potassium 3.3 MMOL/L (3.5-5.1); Total Protein 6.8 G/DL (6.4-8.3)
[2019-03-07 20:49] LABS: Lymphocytes 4 % (20-55); Segmented Neutrophils 92 % (50-85)
[2019-03-07 20:50] LABS: Platelet Estimate Increased
[2019-03-07 20:51] LABS: Anisocytosis Slight
[2019-03-07] MEDS ORDERED: methylPREDNISolone SOD SUC 125 MG/2 ML VIAL IV STA (20:51)
[2019-03-07] MEDS ORDERED: SODIUM CHLORIDE 0.9% 1,000 ML IV STA (20:51)
[2019-03-07] MEDS ORDERED: MEROPENEM 1,000 MG in SODIUM CHLORIDE 0.9% 100 ML IV STA (20:51)
[2019-03-07] MEDS ORDERED: ONDANSETRON 4 MG/2 ML VIAL IV STA (20:51)
[2019-03-07 20:52] LABS: Total Cells Counted 100
[2019-03-07] MEDS ORDERED: KETOROLAC 30 MG/1 ML VIAL IV STA (20:54)
[2019-03-07] MEDS ORDERED: ALBUTEROL 2.5 MG/3 ML NEB RESP TX SCH (21:00)
[2019-03-07] MEDS ORDERED: POTASSIUM BICARB EFFERVESCENT 25 MEQ TABLET PO ONE (21:14)
[2019-03-07 22:23] LABS: Troponin I < 0.015 NG/ML (0.00-0.045)
[2019-03-07 22:36] LABS: Apearance,Urine CLEAR (Clear); Bacteria,Urine Occasional /HPF (Few); Bilirubin,Urine Negative (Negative); Blood, Urine Negative (Negative); Glucose,Urine (UA) Negative (Negative); Hyaline Casts,Urine 1 /LPF (0-3); Ketones,Urine Negative (Negative); Mucus,Urine Occasional /LPF (Occasional); Nitrite,Urine Negative (Negative); Protein,Urine 30 MG/DL; Squamous Epithelial Cell,Urine Occasional /HPF (0-10); Urine Color Amber (Yellow); Urine Specific Gravity 1.024 (1.001-1.035); Urine Urobilinogen < 2.0 EU/DL (0.2-1.0)
[2019-03-08] MEDS ORDERED: SODIUM CHLORIDE 0.9% 500 ML IV STA (00:13)
[2019-03-08] MEDS ORDERED: ACETAMINOPHEN 325 MG TABLET PO PRN (01:35)
[2019-03-08] MEDS ORDERED: HYDROcod/ACETAMIN 7.5-325 MG/15 ML UDCUP PO PRN (01:35)
[2019-03-08] MEDS ORDERED: POTASSIUM CHLORIDE RIDER 100 ML IV ONE (02:07)
[2019-03-08] MEDS: POTASSIUM CHLORIDE RIDER 10 MEQ in PREMIX 1 EACH IV SCH ×2 (02:17→04:29)
[2019-03-08] MEDS: SODIUM CHLORIDE 0.9% 1,000 ML IV SCH ×2 (02:23→16:20)
[2019-03-08] MEDS: ALBUTEROL/IPRATROPIUM 3 ML NEB RESP TX SCH ×5 (02:38→23:35)
[2019-03-08 02:53] LABS: ABG Base Excess 1.9 MMOL/L (-2.5-2.5); ABG Oxygen Saturation 98.8 % (95-100); ABG PCO2 28.3 MM HG (35-48); ABG PH 7.546 (7.35-7.45); ABG TCO2 24.9 MMOL/L (23-27); Allen Test Positive
[2019-03-08 03:27] LABS: Calcium 7.1 MG/DL (8.5-10.1); Osmolality,Calculated 278.5 MOS/KG (273-304)
[2019-03-08] MEDS ORDERED: LEVOFLOXACIN INJ 100 ML IV ONE (04:22)
[2019-03-08] MEDS: LEVOFLOXACIN INJ 500 MG in PREMIX 1 EACH IV SCH (04:35)
[2019-03-08] MEDS ORDERED: THEOPHYLLINE ER 200 MG TABLET PO SCH (08:00)
[2019-03-08] MEDS: predniSONE 50 MG TABLET PO SCH ×2 (10:54→20:45)
[2019-03-08] MEDS: FLUTICASONE/SALMETEROL 500-50 DISKUS 14 DOSE INH SCH ×2 (10:54→20:49)
[2019-03-08] MEDS: CHOLECALCIFEROL 5,000 UNIT TABLET PO SCH (10:55)
[2019-03-08] MEDS: THEOPHYLLINE ER (24 HR) 400 MG CAPSULE PO SCH (10:55)
[2019-03-08] MEDS: CYPROHEPTADINE 4 MG TABLET PO SCH ×2 (16:18→20:45)
[2019-03-08] MEDS: MONTELUKAST 10 MG TABLET PO SCH ×2 (16:18→20:45)
[2019-03-08] MEDS: DORNASE ALFA 2.5 MG/2.5 ML VIAL RESP TX SCH (19:58)
[2019-03-08] MEDS: GABAPENTIN 100 MG CAPSULE PO SCH (20:45)
[2019-03-09] MEDS: ALBUTEROL/IPRATROPIUM 3 ML NEB RESP TX SCH ×6 (02:18→23:24)
[2019-03-09] MEDS: LEVOFLOXACIN INJ 500 MG in PREMIX 1 EACH IV SCH (03:45)
[2019-03-09 05:27] LABS: Basophils % 0.1 % (0.0-0.8); Hematocrit 28.9 VOL% (42.0-52.0); Hemoglobin 8.9 GM/DL (14.0-18.0); Immature Granulocytes % 0.5 %; Lymphocytes # 0.5 10*3/uL (1.4-4.0); Lymphocytes % 2.4 % (21.2-54.2); Mean Corpuscular HGB Conc 30.8 GM/DL (32-36); Mean Corpuscular Hemoglobin 24 PG (27-34); Mean Platelet Volume 8.8 FL (9.6-12.0); Monocytes % 4.6 % (1.7-12.7); Neutrophils # 18.9 10*3/uL (1.4-7.4); Neutrophils % 92.4 % (38.7-73.9); Platelet Count 558 T/CUMM (130-400); Red Blood Count 3.66 MC/CUMM (3.8-5.5); Red Cell Distribution Width 16.5 % (9.3-17.3); White Blood Count 20.5 T/CUMM (4-12)
[2019-03-09 06:03] LABS: Calcium 6.9 MG/DL (8.5-10.1); Osmolality,Calculated 276.8 MOS/KG (273-304)
[2019-03-09 06:08] LABS: Albumin 2.4 G/DL (3.4-5.0); Bilirubin,Direct 0.14 MG/DL (0.0-0.20); Bilirubin,Indirect 1.2 MG/DL (0.0-1.0); Bilirubin,Total 1.3 MG/DL (0.2-1.0); Total Protein 5.2 G/DL (6.4-8.3)
[2019-03-09 06:27] LABS: Segmented Neutrophils 97 % (50-85); Total Cells Counted 100
[2019-03-09 06:28] LABS: Hypochromasia 1+; Ovalocytes Slight; Platelet Estimate Adequate
[2019-03-09] MEDS: DORNASE ALFA 2.5 MG/2.5 ML VIAL RESP TX SCH ×2 (07:26→22:01)
[2019-03-09] MEDS: SODIUM CHLORIDE 0.9% 1,000 ML IV SCH ×2 (07:32→14:04)
[2019-03-09] MEDS: predniSONE 50 MG TABLET PO SCH ×2 (10:17→21:27)
[2019-03-09] MEDS: THEOPHYLLINE ER (24 HR) 400 MG CAPSULE PO SCH (10:17)
[2019-03-09] MEDS: CYPROHEPTADINE 4 MG TABLET PO SCH ×2 (10:17→21:26)
[2019-03-09] MEDS: CHOLECALCIFEROL 5,000 UNIT TABLET PO SCH (10:17)
[2019-03-09] MEDS: MONTELUKAST 10 MG TABLET PO SCH ×2 (10:17→21:26)
[2019-03-09] MEDS: FLUTICASONE/SALMETEROL 500-50 DISKUS 14 DOSE INH SCH ×2 (10:18→21:28)
[2019-03-09] MEDS ORDERED: POTASSIUM CHLORIDE 20 MEQ TABLET PO PRN (10:26)
[2019-03-09] MEDS: POTASSIUM CHLORIDE 20 MEQ TABLET PO SCH (21:27)
[2019-03-09] MEDS: LOPERAMIDE 2 MG CAPSULE PO PRN (21:27)
[2019-03-09] MEDS: GABAPENTIN 100 MG CAPSULE PO SCH (21:28)
[2019-03-09] MEDS: CHOLESTYRAMINE 4 GM PACK PO SCH (21:28)
[2019-03-10] MEDS: SODIUM CHLORIDE 0.9% 1,000 ML IV SCH ×2 (02:00→16:22)
[2019-03-10] MEDS: ALBUTEROL/IPRATROPIUM 3 ML NEB RESP TX SCH ×7 (03:31→23:53)
[2019-03-10] MEDS: LEVOFLOXACIN INJ 500 MG in PREMIX 1 EACH IV SCH (04:00)
[2019-03-10 05:42] LABS: Basophils % 0.1 % (0.0-0.8); Hematocrit 31.8 VOL% (42.0-52.0); Hemoglobin 9.7 GM/DL (14.0-18.0); Immature Granulocytes % 0.6 %; Lymphocytes # 1.3 10*3/uL (1.4-4.0); Lymphocytes % 7.4 % (21.2-54.2); Mean Corpuscular HGB Conc 30.5 GM/DL (32-36); Mean Corpuscular Hemoglobin 24 PG (27-34); Mean Corpuscular Volume 79.3 FL (87-102); Mean Platelet Volume 8.7 FL (9.6-12.0); Monocytes # 1.6 10*3/uL (0.11-0.8); Monocytes % 9.4 % (1.7-12.7); Neutrophils # 14.4 10*3/uL (1.4-7.4); Neutrophils % 82.5 % (38.7-73.9); Platelet Count 534 T/CUMM (130-400); Red Blood Count 4.01 MC/CUMM (3.8-5.5); Red Cell Distribution Width 16.8 % (9.3-17.3); White Blood Count 17.4 T/CUMM (4-12)
[2019-03-10 06:00] LABS: Potassium 2.6 MMOL/L (3.5-5.1)
[2019-03-10] MEDS: DORNASE ALFA 2.5 MG/2.5 ML VIAL RESP TX SCH ×2 (07:51→20:36)
[2019-03-10] MEDS: POTASSIUM CHLORIDE 20 MEQ TABLET PO SCH ×2 (09:39→22:12)
[2019-03-10] MEDS: THEOPHYLLINE ER (24 HR) 400 MG CAPSULE PO SCH (09:40)
[2019-03-10] MEDS: MONTELUKAST 10 MG TABLET PO SCH ×2 (09:41→21:59)
[2019-03-10] MEDS: CHOLESTYRAMINE 4 GM PACK PO SCH ×2 (09:42→21:58)
[2019-03-10] MEDS: CHOLECALCIFEROL 5,000 UNIT TABLET PO SCH (09:44)
[2019-03-10] MEDS: predniSONE 50 MG TABLET PO SCH (09:44)
[2019-03-10] MEDS: CYPROHEPTADINE 4 MG TABLET PO SCH ×2 (09:47→22:09)
[2019-03-10] MEDS: FLUTICASONE/SALMETEROL 500-50 DISKUS 14 DOSE INH SCH ×2 (09:49→22:06)
[2019-03-10] MEDS ORDERED: POTASSIUM CHLORIDE 20 MEQ TABLET PO ONE (15:34)
[2019-03-10] MEDS: methylPREDNISolone SOD SUC 40 MG/1 ML VIAL IV SCH (16:53)
[2019-03-10] MEDS: DEXT 5% NACL 0.9% KCL 20 MEQ 20 MEQ/1,000 ML BAG IV SCH (16:57)
[2019-03-10] MEDS: ALPRAZolam 0.25 MG TABLET PO PRN (17:34)
[2019-03-10] MEDS: GABAPENTIN 100 MG CAPSULE PO SCH (21:59)
[2019-03-10] MEDS: LOPERAMIDE 2 MG CAPSULE PO PRN (21:59)
[2019-03-11] MEDS: ALBUTEROL/IPRATROPIUM 3 ML NEB RESP TX SCH ×6 (03:30→23:39)
[2019-03-11] MEDS: methylPREDNISolone SOD SUC 40 MG/1 ML VIAL IV SCH (04:00)
[2019-03-11] MEDS: DEXT 5% NACL 0.9% KCL 20 MEQ 20 MEQ/1,000 ML BAG IV SCH (04:36)
[2019-03-11] MEDS: LEVOFLOXACIN INJ 500 MG in PREMIX 1 EACH IV SCH (04:50)
[2019-03-11 05:17] LABS: Basophils % 0.1 % (0.0-0.8); Hematocrit 32.2 VOL% (42.0-52.0); Hemoglobin 9.5 GM/DL (14.0-18.0); Immature Granulocytes % 0.9 %; Immature Granulocytes Absolute 0.13 #; Lymphocytes # 1.5 10*3/uL (1.4-4.0); Lymphocytes % 10.1 % (21.2-54.2); Mean Corpuscular HGB Conc 29.5 GM/DL (32-36); Mean Corpuscular Hemoglobin 24 PG (27-34); Mean Corpuscular Volume 82.8 FL (87-102); Mean Platelet Volume 9.2 FL (9.6-12.0); Monocytes # 1.4 10*3/uL (0.11-0.8); Monocytes % 9.2 % (1.7-12.7); Neutrophils % 79.7 % (38.7-73.9); Platelet Count 427 T/CUMM (130-400); Red Blood Count 3.89 MC/CUMM (3.8-5.5); Red Cell Distribution Width 17.1 % (9.3-17.3); White Blood Count 15.1 T/CUMM (4-12)
[2019-03-11 05:29] LABS: Albumin 2.5 G/DL (3.4-5.0); Bilirubin,Total 1.3 MG/DL (0.2-1.0); Calcium 6.3 MG/DL (8.5-10.1); Osmolality,Calculated 280.4 MOS/KG (273-304); Total Protein 5.3 G/DL (6.4-8.3)
[2019-03-11] MEDS: DORNASE ALFA 2.5 MG/2.5 ML VIAL RESP TX SCH ×2 (08:28→19:20)
[2019-03-11] MEDS: ALPRAZolam 0.25 MG TABLET PO PRN ×3 (08:57→22:22)
[2019-03-11] MEDS: CHOLESTYRAMINE 4 GM PACK PO SCH ×2 (08:57→22:30)
[2019-03-11] MEDS: CARVEDILOL 3.125 MG TABLET PO SCH ×2 (08:57→21:39)
[2019-03-11] MEDS: POTASSIUM CHLORIDE 20 MEQ TABLET PO SCH (08:58)
[2019-03-11] MEDS ORDERED: DEXAMETHASONE 4 MG/1 ML VIAL IV SCH (09:00)
[2019-03-11] MEDS: CYPROHEPTADINE 4 MG TABLET PO SCH ×2 (09:05→22:30)
[2019-03-11] MEDS: LOPERAMIDE 2 MG CAPSULE PO PRN (09:05)
[2019-03-11] MEDS: THEOPHYLLINE ER (24 HR) 400 MG CAPSULE PO SCH (09:06)
[2019-03-11] MEDS ORDERED: DEXAMETHASONE INJ 20 MG in SODIUM CHLORIDE 0.9% 50 ML IV ONE (09:30)
[2019-03-11] MEDS: DEXT 5% NACL 0.45% KCL 40 MEQ 40 MEQ/1,000 ML BAG IV SCH ×2 (10:16→21:42)
[2019-03-11] MEDS: CHOLECALCIFEROL 5,000 UNIT TABLET PO SCH (10:27)
[2019-03-11] MEDS: MONTELUKAST 10 MG TABLET PO SCH ×2 (10:27→22:31)
[2019-03-11] MEDS: FLUTICASONE/SALMETEROL 500-50 DISKUS 14 DOSE INH SCH ×2 (10:28→22:29)
[2019-03-11] MEDS ORDERED: DEXT 5% NACL 0.9% KCL 20 MEQ 20 MEQ/1,000 ML BAG IV SCH (11:00)
[2019-03-11] MEDS: cefTAZidime 1,000 MG in SYRINGE 1 EACH IV SCH ×2 (11:22→17:52)
[2019-03-11] MEDS ORDERED: LEVALBUTEROL 1.25 MG/3 ML NEB RESP TX PRN (22:14)
[2019-03-11] MEDS: POTASSIUM CHLORIDE 20 MEQ/15 ML UDCUP PO SCH (22:30)
[2019-03-11] MEDS: GABAPENTIN 100 MG CAPSULE PO SCH (22:30)
[2019-03-11] MEDS ORDERED: methylPREDNISolone SOD SUC 125 MG/2 ML VIAL ONE (22:45)
[2019-03-11] MEDS ORDERED: methylPREDNISolone SOD SUC 125 MG/2 ML VIAL IV ONE (22:46)
[2019-03-11 22:55] LABS: ABG Base Excess -12.2 MMOL/L (-2.5-2.5); ABG HCO3 14.8 MMOL/L (20-26); ABG Oxygen Saturation 89.2 % (95-100); ABG PH 7.306 (7.35-7.45); ABG PO2 63.8 MM HG (80-95); ABG TCO2 11.9 MMOL/L (23-27)
[2019-03-11 22:56] LABS: Allen Test Positive
[2019-03-11] MEDS ORDERED: ETOMIDATE 20 MG/10 ML VIAL IV ONE (23:07)
[2019-03-11] MEDS ORDERED: SUCCINYLCHOLINE 200 MG/10 ML VIAL ONE (23:08)
[2019-03-11] MEDS ORDERED: PROPOFOL 1,000 MG/100 ML BOTTLE IV ONE (23:14)
[2019-03-11] MEDS ORDERED: SODIUM CHLORIDE 0.9% 500 ML IV ONE (23:24)
[2019-03-11 23:29] LABS: Basophils % 0.1 % (0.0-0.8); Hematocrit 33.9 VOL% (42.0-52.0); Hemoglobin 9.9 GM/DL (14.0-18.0); Immature Granulocytes Absolute 0.18 #; Lymphocytes # 2.4 10*3/uL (1.4-4.0); Lymphocytes % 12.6 % (21.2-54.2); Mean Corpuscular HGB Conc 29.2 GM/DL (32-36); Mean Corpuscular Hemoglobin 24 PG (27-34); Mean Corpuscular Volume 83.3 FL (87-102); Monocytes # 1.1 10*3/uL (0.11-0.8); Monocytes % 5.9 % (1.7-12.7); Neutrophils # 15.1 10*3/uL (1.4-7.4); Neutrophils % 80.4 % (38.7-73.9); Platelet Count 486 T/CUMM (130-400); Red Blood Count 4.07 MC/CUMM (3.8-5.5); Red Cell Distribution Width 16.8 % (9.3-17.3); White Blood Count 18.8 T/CUMM (4-12)
[2019-03-11 23:30] LABS: Calcium 6.4 MG/DL (8.5-10.1); Potassium 4.4 MMOL/L (3.5-5.1)
[2019-03-11] MEDS ORDERED: POTASSIUM CHLORIDE RIDER 10 MEQ in PREMIX 1 EACH IV PRN (23:30)
[2019-03-11] MEDS ORDERED: MAGNESIUM SULF RIDER 4 GM in PREMIX 1 EACH IV PRN (23:30)
[2019-03-11] MEDS ORDERED: POTASSIUM CHLORIDE RIDER 20 MEQ in PREMIX 1 EACH IV PRN (23:30)
[2019-03-11] MEDS ORDERED: MAGNESIUM SULF RIDER 2 GM in PREMIX 1 EACH IV PRN (23:30)
[2019-03-11] MEDS: PROPOFOL 1,000 MG/100 ML BOTTLE IV SCH (23:40)
[2019-03-11] MEDS ORDERED: METOPROLOL TARTRATE 5 MG/5 ML VIAL IV ONE ×2 (23:44→23:47)
[2019-03-11] MEDS ORDERED: ENOXAPARIN 60 MG/0.6 ML SYRINGE SUBCUT ONE (23:53)
[2019-03-12 00:27] LABS: ABG Base Excess -11.4 MMOL/L (-2.5-2.5); ABG HCO3 15.4 MMOL/L (20-26); ABG Oxygen Saturation 99.7 % (95-100); ABG PCO2 31.3 MM HG (35-48); ABG PH 7.274 (7.35-7.45); ABG TCO2 13.5 MMOL/L (23-27); Allen Test Positive; Pt O2 Delivery Device Ventilator
[2019-03-12 00:33] LABS: Apearance,Urine CLEAR (Clear); Bilirubin,Urine Negative (Negative); Blood, Urine Small mg/dL (Negative); Glucose,Urine (UA) 50 mg/dL (Negative); Hyaline Casts,Urine 1 /LPF (0-3); Ketones,Urine Negative (Negative); Nitrite,Urine Negative (Negative); Protein,Urine 100 MG/DL; RBC,Urine 8 /HPF (0-4); Urine Color Yellow (Yellow); Urine Specific Gravity 1.017 (1.001-1.035); Urine Urobilinogen < 2.0 EU/DL (0.2-1.0); WBC,Urine 1 /HPF (0-6)
[2019-03-12] MEDS ORDERED: SODIUM CHLORIDE 0.9% 500 ML IV ONE (00:40)
[2019-03-12] MEDS ORDERED: PHENYLEPHRINE DRIP 40 MG/250 ML PREMIX IV PRN (00:41)
[2019-03-12] MEDS ORDERED: SODIUM BICARBONATE 50 MEQ/50 ML VIAL IV ONE (00:42)
[2019-03-12] MEDS ORDERED: PHENYLEPHRINE DRIP 40 MG/250 ML PREMIX IV ONE (00:46)
[2019-03-12] MEDS ORDERED: VANCOMYCIN INJ 750 MG in SODIUM CHLORIDE 0.9% 250 ML IV SCH (01:00)
[2019-03-12] MEDS: VANCOMYCIN INJ 750 MG in SODIUM CHLORIDE 0.9% 250 ML IV SCH ×2 (02:15→18:33)
[2019-03-12] MEDS: cefTAZidime 1,000 MG in SYRINGE 1 EACH IV SCH ×3 (02:59→18:33)
[2019-03-12] MEDS ORDERED: LEVALBUTEROL 1.25 MG/3 ML NEB RESP TX SCH (03:00)
[2019-03-12] MEDS: PROPOFOL 1,000 MG/100 ML BOTTLE IV SCH ×4 (03:51→19:32)
[2019-03-12 03:55] LABS: ABG HCO3 17.2 MMOL/L (20-26); ABG Oxygen Saturation 99.5 % (95-100); ABG PCO2 29.7 MM HG (35-48); ABG PH 7.335 (7.35-7.45); ABG TCO2 14.7 MMOL/L (23-27); Allen Test Positive; Pt O2 Delivery Device Ventilator
[2019-03-12] MEDS: LEVOFLOXACIN INJ 500 MG in PREMIX 1 EACH IV SCH (04:40)
[2019-03-12 05:40] LABS: Basophils % 0.2 % (0.0-0.8); Hematocrit 30.4 VOL% (42.0-52.0); Hemoglobin 8.8 GM/DL (14.0-18.0); Immature Granulocytes % 1.8 %; Immature Granulocytes Absolute 0.46 #; Lymphocytes # 0.7 10*3/uL (1.4-4.0); Lymphocytes % 2.9 % (21.2-54.2); Mean Corpuscular HGB Conc 28.9 GM/DL (32-36); Mean Corpuscular Hemoglobin 25 PG (27-34); Mean Corpuscular Volume 85.2 FL (87-102); Mean Platelet Volume 8.9 FL (9.6-12.0); Monocytes # 0.8 10*3/uL (0.11-0.8); Neutrophils # 23.1 10*3/uL (1.4-7.4); Neutrophils % 92.1 % (38.7-73.9); Platelet Count 460 T/CUMM (130-400); Red Blood Count 3.57 MC/CUMM (3.8-5.5); Red Cell Distribution Width 16.9 % (9.3-17.3); White Blood Count 25.1 T/CUMM (4-12)
[2019-03-12 05:53] LABS: Albumin 2.4 G/DL (3.4-5.0); Bilirubin,Total 0.8 MG/DL (0.2-1.0); Osmolality,Calculated 289.3 MOS/KG (273-304); Potassium 4.1 MMOL/L (3.5-5.1); Total Protein 4.8 G/DL (6.4-8.3)
[2019-03-12 05:57] LABS: Calcium 5.8 MG/DL (8.5-10.1)
[2019-03-12 06:11] LABS: Lymphocytes 2 % (20-55); Metamyelocytes 1 %; Segmented Neutrophils 94 % (50-85)
[2019-03-12 06:12] LABS: Platelet Estimate Increased
[2019-03-12 06:13] LABS: Burr Cells 2+; Polychromasia Few; Total Cells Counted 100
[2019-03-12] MEDS: ALBUTEROL/IPRATROPIUM 3 ML NEB RESP TX SCH ×3 (07:16→19:05)
[2019-03-12] MEDS: DORNASE ALFA 2.5 MG/2.5 ML VIAL RESP TX SCH ×2 (07:16→19:13)
[2019-03-12] MEDS: PHENYLEPHRINE INJ 160 MG in SODIUM CHLORIDE 0.9% 234 ML IV PRN ×2 (07:17→18:35)
[2019-03-12] MEDS: methylPREDNISolone SOD SUC 40 MG/1 ML VIAL IV SCH ×3 (07:20→18:33)
[2019-03-12] MEDS ORDERED: ASPIRIN 325 MG TABLET PO ONE (08:47)
[2019-03-12] MEDS ORDERED: HEPARIN/NACL 0.9% 2 UNITS/ML 1,000 ML IV ONE (09:42)
[2019-03-12] MEDS ORDERED: LIDOCAINE 1% 20 ML VIAL ONE (09:42)
[2019-03-12] MEDS: CARVEDILOL 3.125 MG TABLET PO SCH (09:47)
[2019-03-12] MEDS ORDERED: CALCIUM GLUCONATE 3,000 MG in SODIUM CHLORIDE 0.9% 100 ML IV ONE (10:00)
[2019-03-12 10:14] LABS: CKMB % 7.9 %
[2019-03-12 10:16] LABS: Troponin I 3.86 NG/ML (0.00-0.045)
[2019-03-12] MEDS: FLUTICASONE/SALMETEROL 500-50 DISKUS 14 DOSE INH SCH ×2 (12:46→21:36)
[2019-03-12] MEDS: CHOLESTYRAMINE 4 GM PACK PO SCH ×2 (12:47→21:52)
[2019-03-12] MEDS: CYPROHEPTADINE 4 MG TABLET PO SCH ×2 (12:47→21:51)
[2019-03-12] MEDS: POTASSIUM CHLORIDE 20 MEQ/15 ML UDCUP PO SCH ×2 (12:47→21:51)
[2019-03-12] MEDS: MONTELUKAST 10 MG TABLET PO SCH ×2 (12:47→21:52)
[2019-03-12] MEDS: CHOLECALCIFEROL 5,000 UNIT TABLET PO SCH (12:48)
[2019-03-12] MEDS: THEOPHYLLINE ER (24 HR) 400 MG CAPSULE PO SCH (12:48)
[2019-03-12] MEDS: DEXT 5% NACL 0.45% KCL 40 MEQ 40 MEQ/1,000 ML BAG IV SCH (13:43)
[2019-03-12] MEDS: POLYVINYL ALCOHOL 1.4% OPH SOLN 15 ML BOTTLE BOTH EYES PRN (14:00)
[2019-03-12] MEDS: FLUCONAZOLE INJ 200 MG in PREMIX 1 EACH IV SCH (14:18)
[2019-03-12] MEDS: DOBUTamine 500 MG/250 ML PREMIX IV SCH (14:19)
[2019-03-12] MEDS: GABAPENTIN 100 MG CAPSULE PO SCH (21:51)
[2019-03-13] MEDS: POLYVINYL ALCOHOL 1.4% OPH SOLN 15 ML BOTTLE BOTH EYES PRN ×2 (00:37→05:20)
[2019-03-13] MEDS: methylPREDNISolone SOD SUC 40 MG/1 ML VIAL IV SCH ×4 (01:34→18:05)
[2019-03-13] MEDS: ALBUTEROL/IPRATROPIUM 3 ML NEB RESP TX SCH ×4 (01:45→20:43)
[2019-03-13] MEDS: cefTAZidime 1,000 MG in SYRINGE 1 EACH IV SCH ×3 (02:49→18:05)
[2019-03-13] MEDS: PROPOFOL 1,000 MG/100 ML BOTTLE IV SCH ×4 (02:50→23:41)
[2019-03-13] MEDS: DEXT 5% NACL 0.45% KCL 40 MEQ 40 MEQ/1,000 ML BAG IV SCH ×3 (02:55→18:04)
[2019-03-13 03:06] LABS: Allen Test Positive; Pt O2 Delivery Device Ventilator
[2019-03-13 03:07] LABS: ABG Base Excess -7.1 MMOL/L (-2.5-2.5); ABG HCO3 18.6 MMOL/L (20-26); ABG PCO2 24.9 MM HG (35-48); ABG PH 7.416 (7.35-7.45); ABG TCO2 14.3 MMOL/L (23-27)
[2019-03-13] MEDS: LEVOFLOXACIN INJ 500 MG in PREMIX 1 EACH IV SCH (04:19)
[2019-03-13] MEDS: PHENYLEPHRINE INJ 160 MG in SODIUM CHLORIDE 0.9% 234 ML IV PRN ×2 (05:02→18:13)
[2019-03-13 05:18] LABS: Basophils % 0.1 % (0.0-0.8); Hematocrit 32.6 VOL% (42.0-52.0); Hemoglobin 9.9 GM/DL (14.0-18.0); Immature Granulocytes % 1.1 %; Immature Granulocytes Absolute 0.21 #; Lymphocytes # 0.7 10*3/uL (1.4-4.0); Lymphocytes % 3.7 % (21.2-54.2); Mean Corpuscular HGB Conc 30.4 GM/DL (32-36); Mean Corpuscular Hemoglobin 25 PG (27-34); Mean Corpuscular Volume 82.1 FL (87-102); Mean Platelet Volume 10.1 FL (9.6-12.0); Monocytes # 0.8 10*3/uL (0.11-0.8); Monocytes % 4.3 % (1.7-12.7); NRBC # 0.03 10*3/uL; Neutrophils # 16.6 10*3/uL (1.4-7.4); Neutrophils % 90.8 % (38.7-73.9); Platelet Count 151 T/CUMM (130-400); Red Blood Count 3.97 MC/CUMM (3.8-5.5); Red Cell Distribution Width 17.3 % (9.3-17.3); White Blood Count 18.3 T/CUMM (4-12)
[2019-03-13 05:19] LABS: Albumin 2.3 G/DL (3.4-5.0); Bilirubin,Total 0.9 MG/DL (0.2-1.0); Calcium 6.2 MG/DL (8.5-10.1); Osmolality,Calculated 281.5 MOS/KG (273-304); Total Protein 5.2 G/DL (6.4-8.3)
[2019-03-13 05:22] LABS: Risk Ratio 2.61; VLDL CHOLESTEROL 36.4 MG/DL
[2019-03-13 06:19] LABS: Lymphocytes 5 % (20-55); Segmented Neutrophils 91 % (50-85)
[2019-03-13 06:20] LABS: Burr Cells 3+; Platelet Estimate Adequate
[2019-03-13 06:22] LABS: Howell-Jolly Bodies Few; Ovalocytes 2+; Total Cells Counted 100
[2019-03-13] MEDS: DORNASE ALFA 2.5 MG/2.5 ML VIAL RESP TX SCH ×2 (07:19→20:43)
[2019-03-13] MEDS: FLUTICASONE/SALMETEROL 500-50 DISKUS 14 DOSE INH SCH ×2 (08:58→21:03)
[2019-03-13] MEDS: ENOXAPARIN 40 MG/0.4 ML SYRINGE SUBCUT SCH (11:29)
[2019-03-13] MEDS: POTASSIUM CHLORIDE 20 MEQ/15 ML UDCUP PO SCH ×2 (11:30→21:04)
[2019-03-13] MEDS: CHOLESTYRAMINE 4 GM PACK PO SCH ×2 (11:31→21:04)
[2019-03-13] MEDS: CYPROHEPTADINE 4 MG TABLET PO SCH ×2 (11:31→21:05)
[2019-03-13] MEDS: CHOLECALCIFEROL 5,000 UNIT TABLET PO SCH (11:32)
[2019-03-13] MEDS: THEOPHYLLINE ER (24 HR) 400 MG CAPSULE PO SCH (11:32)
[2019-03-13] MEDS: MONTELUKAST 10 MG TABLET PO SCH ×2 (11:32→21:04)
[2019-03-13] MEDS: FLUCONAZOLE INJ 200 MG in PREMIX 1 EACH IV SCH (11:35)
[2019-03-13] MEDS: DOBUTamine 500 MG/250 ML PREMIX IV SCH (11:46)
[2019-03-13] MEDS ORDERED: ASPIRIN EC 81 MG TABLET PO SCH (12:00)
[2019-03-13] MEDS: VANCOMYCIN INJ 750 MG in SODIUM CHLORIDE 0.9% 250 ML IV SCH ×2 (12:17→21:04)
[2019-03-13] MEDS: ASPIRIN CHEW 81 MG TABLET PO SCH (12:20)
[2019-03-13] MEDS ORDERED: MORPHINE 4 MG/1 ML VIAL IV PRN (18:03)
[2019-03-13] MEDS: GABAPENTIN 100 MG CAPSULE PO SCH (21:04)
[2019-03-13] MEDS: MORPHINE 4 MG/1 ML VIAL IV PRN (23:10)
[2019-03-13] MEDS: LORazepam 2 MG/1 ML VIAL IV PRN (23:11)
[2019-03-14] MEDS: LORazepam 2 MG/1 ML VIAL IV PRN ×2 (00:13→09:45)
[2019-03-14] MEDS: MORPHINE 4 MG/1 ML VIAL IV PRN ×5 (00:17→12:31)
[2019-03-14] MEDS: methylPREDNISolone SOD SUC 40 MG/1 ML VIAL IV SCH ×3 (01:06→13:26)
[2019-03-14] MEDS: ALBUTEROL/IPRATROPIUM 3 ML NEB RESP TX SCH (01:26)
[2019-03-14 05:21] VITALS: BP 88/58
[2019-03-14] MEDS: cefTAZidime 1,000 MG in SYRINGE 1 EACH IV SCH ×2 (05:40→10:43)
[2019-03-14] MEDS: LEVOFLOXACIN INJ 500 MG in PREMIX 1 EACH IV SCH (05:40)
[2019-03-14] MEDS: FLUTICASONE/SALMETEROL 500-50 DISKUS 14 DOSE INH SCH (10:30)
[2019-03-14] MEDS: CYPROHEPTADINE 4 MG TABLET PO SCH (10:30)
[2019-03-14] MEDS: CHOLESTYRAMINE 4 GM PACK PO SCH (10:30)
[2019-03-14] MEDS: ASPIRIN CHEW 81 MG TABLET PO SCH (10:30)
[2019-03-14] MEDS: POTASSIUM CHLORIDE 20 MEQ/15 ML UDCUP PO SCH (10:30)
[2019-03-14] MEDS: CHOLECALCIFEROL 5,000 UNIT TABLET PO SCH (10:31)
[2019-03-14] MEDS: MONTELUKAST 10 MG TABLET PO SCH (10:31)
[2019-03-14] MEDS: THEOPHYLLINE ER (24 HR) 400 MG CAPSULE PO SCH (10:31)
[2019-03-14] MEDS: ENOXAPARIN 40 MG/0.4 ML SYRINGE SUBCUT SCH (10:42)
[2019-03-14] MEDS: VANCOMYCIN INJ 750 MG in SODIUM CHLORIDE 0.9% 250 ML IV SCH (10:42)
[2019-03-14] MEDS: FLUCONAZOLE INJ 200 MG in PREMIX 1 EACH IV SCH (10:43)
== END 2019-03-14 12:41 | disposition expired | DRG 193 ==
LOC: N.ED 17:07 → N.EDINP 03-08 05:41 → SUATTDRO 03-08 05:41 → N.4E 03-08 06:19 → N.ICU 03-11 23:19 → N.4E 03-14 01:47
PROVIDERS: ADMIT Hospitalist; ATTEND Hospitalist
PROC: CLCCHCL (ICD-10-PCS; 2019-03-12 10:15)